=== PATIENT | female | born 1945 | race Caucasian/White ===

== ENCOUNTER 2016-11-07 13:35 | Inpatient (IN) | payer MEDICARE, BC ==
[2016-11-07] VITALS (8 sets, daily range): BP systolic 109–181; BP diastolic 58–94; PULSE 55–77; RESP 18–22; TEMP 96.9–97.9; O2SAT 91–96
[~2016-11-07] VITALS: Ht 154.9 cm; Wt 99.1 kg
[~2016-11-07 13:35] MED LIST: ASPI81 PO; ATEN1TAB73 PO; LISI10TA PO; PROT40TA PO; TRIGOSAMINE; ZOCO40TA PO
[2016-11-07] MEDS ORDERED: CALC1TAB12 PO (13:49)
[2016-11-07] MEDS ORDERED: POTA10TA2 PO (13:49)
[2016-11-07] MEDS ORDERED: NYST500000 PO (13:49)
[2016-11-07] MEDS ORDERED: OMEP20TA PO (13:49)
[2016-11-07] MEDS ORDERED: STOO100T PO (13:49)
[2016-11-07] MEDS ORDERED: SERT25TA83 PO (13:49)
[2016-11-07] MEDS ORDERED: FURO20TA PO (13:49)
[2016-11-07] MEDS ORDERED: INHALER (13:49)
[2016-11-07] MEDS ORDERED: FISHCAP4 PO (13:49)
[2016-11-07] MEDS ORDERED: MULT1TAB84 PO (13:49)
[2016-11-07] MEDS ORDERED: PRED5TAB PO (13:49)
[2016-11-07] MEDS ORDERED: ALEN1TAB48 PO (13:49)
[2016-11-07] MEDS ORDERED: ATEN25TA PO (13:49)
[2016-11-07] MEDS ORDERED: FIBER GUMMIES (13:49)
[2016-11-07] MEDS ORDERED: ASPIRIN 325 MG TAB PO ONE (14:00)
[2016-11-07] MEDS ORDERED: SODIUM CHLORIDE 0.9% FLUSH 10 ML FLUSH IVF PRN (14:00)
--- NOTE | 2016-11-07 14:02 | PD ---
HPI Chief Complaint: Respiratory Symptoms Time Seen by Provider: 13:40 Travel History International Travel<30 days: No Contact w/Intl Traveler<30days: No Traveled to known affect area: No History of Present Illness HPI This patient complains of central chest tightness and pressure whenever she exerts. She also has some shortness of breath with exertion. While resting she is asymptomatic. She denies history of coronary disease or pulmonary disease. Symptom severity is moderate. No alleviating factors. Duration 3 days. No fever or cough or injury. sHe takes Lasix secondary to swelling from prednisone she reports. She has been compliant with it. PFSH Past Medical History Arthritis: No Asthma: No Autoimmune Disease: No Blood Disorders: No Anxiety: Yes Depression: Yes Heart Rhythm Problems: No Cancer: No Cardiovascular Problems: Yes High Cholesterol: No Chemotherapy: No Chest Pain: No Congestive Heart Failure: No COPD: No Cerebrovascular Accident: No Diabetes: No Diminished Hearing: No Endocrine: No Gastrointestinal Disorders: Yes GERD: No Glaucoma: No Genitourinary: No Headaches: No Hepatitis: No Hiatal Hernia: Yes Hypertension: Yes Immune Disorder: No Kidney Stones: No Musculoskeletal: No Neurologic: No Psychiatric: No Reproductive: No Respiratory: No Migraines: No Myocardial Infarction: No Radiation Therapy: No Renal Failure: Yes Seizures: No Sickle Cell Disease: No Thyroid Disease: No Ulcer: No Past Surgical History Abdominal Surgery: Yes (HYSTERECTOMY, CHOLECYSTECTOMY) AICD: No Appendectomy: No Arteriovenous Shunt: No Cardiac Surgery: No Cholecystectomy: Yes Ear Surgery: No Endocrine Surgery: No Eye Surgery: No Genitourinary Surgery: No Gynecologic Surgery: No Hysterectomy: Yes Insulin Pump: No Joint Replacement: No Oral Surgery: No Pacemaker: No Thoracic Surgery: No Other Surgery: Yes (HERNIA REPAIR) Social History Alcohol Use: No Tobacco Use: No Substance Use: No Allergies-Medications (Allergen,Severity, Reaction): Coded Allergies: No Known Allergies (Verified , 11/07/16) Reported Meds & Prescriptions Reported Meds & Active Scripts Active Reported [Inhaler] Sertraline (Sertraline HCl) 25 Mg Tab 25 Mg PO DAILY [Fiber Gummies] Stool Softener (Docusate Sodium) 100 Mg Tab 1 Tab PO BID Nystatin 500,000 Unit Tab 1,000,000 Units PO Q8H Prednisone 5 Mg Tab 5 Mg PO DAILY Multivitamin Adults (Multiple Vitamins W/ Minerals) 1 Tab 1 Tab PO DAILY Fish Oil + D3 (Fish Oil-Cholecalciferol) 1,200-1,000 Mg-Unit Cap 1 Cap PO DAILY Alendronate (Alendronate Sodium) 70 Mg Tab 70 Mg PO Q7D Omeprazole 20 Mg Tab 20 Mg PO DAILY Furosemide 20 Mg Tab 20 Mg PO DAILY Potassium Chloride ER (Potassium Chloride) 10 Meq Tab 10 Meq PO DAILY Atenolol 25 Mg Tab 25 Mg PO DAILY Calcium 500 +D (Calcium Carbonate-Cholecalciferol) 500-400 Mg-Unit Tab 1 Tab PO BID Review of Systems General / Constitutional: No: Fever Eyes: No: Visual changes HENT: No: Headaches Cardiovascular: Positive: Chest Pain or Discomfort Respiratory: Positive: Shortness of Breath Gastrointestinal: No: Abdominal Pain Genitourinary: No: Dysuria Musculoskeletal: No: Pain Skin: No Rash Neurologic: No: Weakness Psychiatric: No: Depression Endocrine: No: Polydipsia Hematologic/Lymphatic: No: Easy Bruising Physical Exam Narrative GENERAL: Well-nourished, well-developed patient in no apparent distress. SKIN: Focused skin assessment reveals no rash and nodules. Skin is Warm and dry. HEAD: Atraumatic. Normocephalic. EYES: Pupils equal and round. No scleral icterus. No injection or drainage. ENT: No nasal bleeding or discharge. Mucous membranes pink and moist. NECK: Trachea midline. No JVD. CARDIOVASCULAR: Regular rate and rhythm. No murmur appreciated. RESPIRATORY: No accessory muscle use. Clear to auscultation. Breath sounds equal bilaterally. GASTROINTESTINAL: Abdomen soft, non-tender, nondistended. Hepatic and splenic margins not palpable. MUSCULOSKELETAL: No obvious deformities. No clubbing. No cyanosis. No edema. NEUROLOGICAL: Awake and alert. No obvious cranial nerve deficits. Motor grossly within normal limits. Normal speech. PSYCHIATRIC: Appropriate mood and affect; insight and judgment normal. Data Data Last Documented VS Vital Signs Date Time Temp Pulse Resp B/P Pulse Ox O2 Delivery O2 Flow Rate FiO2 11/07/16 15:16 59 20 147/67 91 Room Air 11/07/16 13:42 97.9 Orders Electrocardiogram (11/07/16 13:55) Basic Metabolic Panel (Bmp) (11/07/16 13:55) Ckmb (Isoenzyme) Profile (11/07/16 13:55) Complete Blood Count With Diff (11/07/16 13:55) Prothrombin Time / Inr (Pt) (11/07/16 13:55) Act Partial Throm Time (Ptt) (11/07/16 13:55) Troponin I (11/07/16 13:55) Chest, Single Ap (11/07/16 13:55) Ecg Monitoring (11/07/16 13:55) Iv Access Insert/Monitor (11/07/16 13:55) Oximetry (11/07/16 13:55) Aspirin (Aspirin) (11/07/16 14:00) Sodium Chloride 0.9% Flush (Ns Flush) (11/07/16 14:00) Admit Order (Ed Use Only) (11/07/16 15:54) Labs Laboratory Tests Test 11/07/16 14:10 White Blood Count 13.0 TH/MM3 Red Blood Count 4.44 MIL/MM3 Hemoglobin 13.3 GM/DL Hematocrit 39.8 % Mean Corpuscular Volume 89.8 FL Mean Corpuscular Hemoglobin 29.9 PG Mean Corpuscular Hemoglobin 33.3 % Concent Red Cell Distribution Width 12.8 % Platelet Count 205 TH/MM3 Mean Platelet Volume 8.2 FL Neutrophils (%) (Auto) 66.6 % Lymphocytes (%) (Auto) 20.2 % Monocytes (%) (Auto) 7.9 % Eosinophils (%) (Auto) 0.6 % Basophils (%) (Auto) 4.7 % Neutrophils # (Auto) 8.7 TH/MM3 Lymphocytes # (Auto) 2.6 TH/MM3 Monocytes # (Auto) 1.0 TH/MM3 Eosinophils # (Auto) 0.1 TH/MM3 Basophils # (Auto) 0.6 TH/MM3 CBC Comment DIFF FINAL Differential Comment Prothrombin Time 11.9 SEC Prothromb Time International 1.1 RATIO Ratio Activated Partial 23.6 SEC Thromboplast Time Sodium Level 141 MEQ/L Potassium Level 3.4 MEQ/L Chloride Level 105 MEQ/L Carbon Dioxide Level 24.9 MEQ/L Anion Gap 11 MEQ/L Blood Urea Nitrogen 18 MG/DL Creatinine 1.20 MG/DL Estimat Glomerular Filtration 44 ML/MIN Rate Random Glucose 166 MG/DL Calcium Level 8.9 MG/DL Total Creatine Kinase 86 U/L Troponin I 0.12 NG/ML MDM Medical Decision Making Medical Screen Exam Complete: Yes Emergency Medical Condition: Yes Medical Record Reviewed: Yes Differential Diagnosis ACS, coronary artery disease, bronchitis, pneumonia Narrative Course I have reviewed the patient's electronic medical record. IV placed I reviewed the EKG which shows sinus rhythm and no ST elevation or ectopy I reviewed the chest x-ray which is normal Extended cardiac monitoring shows sinus rhythm without ectopy CBC is normal Metabolic profile is normal CK is normal Troponin is 0.12 Coagulation studies are normal I called and spoke with the patient's primary physician in [place] who is Dr. Job Beasley the third. He faxed the patient's most recent testing. She had a normal myocardial perfusion scan with EF of 75% 2 months ago. She also had PFTs that showed some minor irregularities. I reviewed the case with Dr. Russell who will admit to telemetry. Etiology of her mild troponin elevation is unclear but I don't feel she is having an acute ACS at this time. She is asymptomatic in the bed at this time Diagnosis Primary Impression: Chest pain in adult Additional Impression: Elevated troponin I level Admitting Information Admitting Physician Requests: Admit Alfredo Smallwood MD Nov 07, 2016 14:02
--- NOTE | 2016-11-07 14:16 | RADHPO ---
EXAM DATE/TIME: 11/07/2016 14:01 [facility] COMPARISON: No previous studies available for comparison. INDICATIONS : Shortness of breath. MEDICAL HISTORY : Hypertension. SURGICAL HISTORY : None. ENCOUNTER: Initial ACUITY: 4 - 6 days PAIN SCORE: 0/10 LOCATION: Bilateral chest FINDINGS: A single view of the chest demonstrates the lungs to be symmetrically aerated without evidence of mas s, infiltrate or effusion. The cardiomediastinal contours are unremarkable. Osseous structures are intact. CONCLUSION: No acute disease. Chente Caicedo MD on November 07, 2016 at 14:14 Board Certified Radiologist. This report was verified electronically.
[2016-11-07 14:21] LABS: AUTOMATED NEUTROPHIL # 8.7 TH/MM3 (1.8-7.7); BASOPHIL # 0.6 TH/MM3 (0-0.2); BASOPHIL % 4.7 % (0.0-2.0); EOSINOPHIL # 0.1 TH/MM3 (0-0.4); EOSINOPHIL % 0.6 % (0.0-4.0); HEMATOCRIT 39.8 % (35.0-46.0); HEMO FLAGS DIFF FINAL; LYMPH % 20.2 % (9.0-44.0); LYMPHOCYTE # 2.6 TH/MM3 (1.0-4.8); MEAN CELL VOLUME 89.8 FL (80.0-100.0); MEAN CORPUSCULAR HEMOGLOBIN 29.9 PG (27.0-34.0); MEAN CORPUSCULAR HGB CONC 33.3 % (32.0-36.0); MONO % 7.9 % (0.0-8.0); NEUT % 66.6 % (16.0-70.0); PLATELET COUNT 205 TH/MM3 (150-450); RED BLOOD COUNT 4.44 MIL/MM3 (4.00-5.30); RED CELL DISTRIBUTION WIDTH 12.8 % (11.6-17.2)
[2016-11-07 14:27] LABS: POTASSIUM 3.4 MEQ/L (3.5-5.1)
[2016-11-07 14:30] LABS: BICARBONATE 24.9 MEQ/L (21.0-32.0)
[2016-11-07 14:32] LABS: APTT (PATIENT) 23.6 SEC (24.3-30.1); INTERNATIONAL NORMALIZED RATIO 1.1 RATIO; PROTHROMBIN TIME - PATIENT 11.9 SEC (9.8-11.6)
--- NOTE | 2016-11-07 15:55 | EKG ---
Date Performed: 11/07/2016 Time Performed: 13:44:14 PTAGE: 71 years EKG: Sinus rhythm Right bundle branch block Low QRS voltages in precordial leads Abnormal ECG NO PREVIOUS TRACING DOCTOR: Tom Blair Interpretating Date/Time 11/07/2016 15:55:13
[2016-11-07] MEDS ORDERED: hydrALAZINE HCL 20 MG/ML VIAL IV PRN (16:15)
[2016-11-07] MEDS ORDERED: SODIUM CHLORIDE 0.9% FLUSH 10 ML FLUSH IV FLUSH PRN (16:15)
[2016-11-07] MEDS ORDERED: NYSTATIN 500,000 UNIT TAB PO SCH (16:15)
[2016-11-07] MEDS ORDERED: POTASSIUM CHLORIDE 20 MEQ CONTROLLED RELEASE TAB PO ONE (16:15)
[2016-11-07] MEDS ORDERED: ONDANSETRON HCL 4 MG/2 ML VIAL IV PRN (16:15)
[2016-11-07] MEDS ORDERED: CALCIUM CARBONATE 500 MG CHEWABLE TAB CHEW PRN (16:15)
[2016-11-07] MEDS ORDERED: NITROGLYCERIN 0.4 MG SL 25 TABS/BTL SL PRN (16:15)
[2016-11-07] MEDS ORDERED: ACETAMINOPHEN 500 MG CPLT PO PRN (16:15)
[2016-11-07] MEDS ORDERED: DOCUSATE SODIUM 100 MG CAP PO PRN (16:15)
[2016-11-07] MEDS ORDERED: cloNIDine HCL 0.1 MG TAB PO PRN (16:15)
[2016-11-07] MEDS ORDERED: ACETAMINOPHEN/HYDROcodone 325 MG/7.5 MG TAB PO PRN (16:15)
[2016-11-07] MEDS ORDERED: MORPHINE SULFATE 4 MG/ML INJ IV PRN (16:15)
[2016-11-07] MEDS ORDERED: DOCUSATE SODIUM 50 MG/SENNA 8.6 MG TAB PO PRN (16:15)
[2016-11-07] MEDS ORDERED: PILL SPLITTER OTHER PRN (16:45)
--- NOTE | 2016-11-07 17:27 | HHI.HP ---
[facility] Service [place] [facility] Primary Care Physician Non-Staff Admission Diagnosis chest pain, mild trep elevation Diagnoses: Chief Complaint: chest pain Travel History International Travel<30 Days: No Contact w/Intl Traveler <30 Da: No Traveled to Known Affected Are: No History of Present Illness This is a 71-year-old female with a history of anxiety, depression, PMR on steroid, hypertension and chronic kidney disease stage III. She complains of dyspnea on exertion followed by chest heaviness for the past 3 days associated with shakiness, palpitations with spontaneous resolution when she rests. Denies leg pain and swelling but feels weak. She recently took a train from [place] about a week ago. Patient on chronic steroids and when her PCP tried to wean her she developed shortness of breath but different from her recent symptoms. Review of Systems Constitutional: COMPLAINS OF: Fatigue, DENIES: Diaphoretic episodes, Fever, Weight gain, Weight loss, Chills, Change in appetite, Night Sweats Endocrine: DENIES: Heat/cold intolerance, Polydipsia, Polyuria, Polyphagia Eyes: DENIES: Blurred vision, Diplopia, Vision loss, Photosensitivity Ears, nose, mouth, throat: DENIES: Tinnitus, Vertigo, Throat pain, Hoarseness, Epistaxis, Odynophagia Respiratory: COMPLAINS OF: Shortness of breath, DENIES: Cough, Wheezing, Hemoptysis, Sputum production Cardiovascular: COMPLAINS OF: Chest pain, Palpitations, DENIES: Syncope, Dyspnea on Exertion, PND, Lower Extremity Edema, Orthopnea, Claudication Gastrointestinal: DENIES: Abdominal pain, Black stools, Bloody stools, Constipation, Diarrhea, Nausea, Vomiting, Difficulty Swallowing, Anorexia Genitourinary: DENIES: Urinary frequency, Urinary incontinence, Urgency, Hematuria, Dysuria, Nocturia, Vaginal discharge Integumentary: DENIES: Rash Neurologic: DENIES: Headache, Localized weakness, Seizures, Tremor, Poor Balance Psychiatric: DENIES: Anxiety, Confusion, Depression, Hallucinations, Agitation , Suicidal Ideation, Homicidal Ideation, Delusions Past Family Social History Past Medical History As previously mentioned. Lasix to negate effect of steroids denies CHF Past Surgical History Hysterectomy and cholecystectomy as well as hernia repair Reported Medications Sertraline (Sertraline HCl) 25 Mg Tab 25 Mg PO DAILY [Fiber Gummies] Stool Softener (Docusate Sodium) 100 Mg Tab 1 Tab PO BID Nystatin 500,000 Unit Tab 1,000,000 Units PO Q8H Prednisone 5 Mg Tab 5 Mg PO DAILY Multivitamin Adults (Multiple Vitamins W/ Minerals) 1 Tab 1 Tab PO DAILY Fish Oil + D3 (Fish Oil-Cholecalciferol) 1,200-1,000 Mg-Unit Cap 1 Cap PO DAILY Alendronate (Alendronate Sodium) 70 Mg Tab 70 Mg PO Q7D Omeprazole 20 Mg Tab 20 Mg PO DAILY Furosemide 20 Mg Tab 20 Mg PO DAILY Potassium Chloride ER (Potassium Chloride) 10 Meq Tab 10 Meq PO DAILY Atenolol 25 Mg Tab 25 Mg PO DAILY Calcium 500 Allergies: Coded Allergies: No Known Allergies (Verified , 11/07/16) Family History Heart disease Social History Does not smoke or drink Physical Exam Vital Signs Vital Signs Date Time Temp Pulse Resp B/P Pulse Ox O2 Delivery O2 Flow Rate FiO2 11/07/16 15:16 59 20 147/67 91 Room Air 11/07/16 14:18 66 20 109/58 95 11/07/16 14:16 96 11/07/16 13:42 97.9 77 22 181/94 96 Physical Exam GENERAL: This is an obese, well-developed patient, in no apparent distress. SKIN: No rashes, ecchymoses or lesions. Cool and dry. HEAD: Atraumatic. Normocephalic. No temporal or scalp tenderness. EYES: Pupils equal round and reactive. Extraocular motions intact. No scleral icterus. No injection or drainage. ENT: Nose without bleeding, purulent drainage or septal hematoma. Throat without erythema, tonsillar hypertrophy or exudate. Uvula midline. Airway patent. NECK: Trachea midline. No JVD or lymphadenopathy. Supple, nontender, no meningeal signs. CARDIOVASCULAR: Regular rate and rhythm without murmurs, gallops, or rubs. No chest wall tenderness RESPIRATORY: Clear to auscultation. Breath sounds equal bilaterally. No wheezes , rales, or rhonchi. GASTROINTESTINAL: Abdomen soft, non-tender, nondistended. No guarding. MUSCULOSKELETAL: Extremities without clubbing, cyanosis, or edema. No joint tenderness, effusion, or edema noted. No calf tenderness. Negative Homans sign bilaterally. NEUROLOGICAL: Awake and alert. Cranial nerves II through XII intact. Motor and sensory grossly within normal limits. Five out of 5 muscle strength in all muscle groups. Normal speech. Laboratory Laboratory Tests Test 11/07/16 14:10 White Blood Count 13.0 Red Blood Count 4.44 Hemoglobin 13.3 Hematocrit 39.8 Mean Corpuscular Volume 89.8 Mean Corpuscular Hemoglobin 29.9 Mean Corpuscular Hemoglobin 33.3 Concent Red Cell Distribution Width 12.8 Platelet Count 205 Mean Platelet Volume 8.2 Neutrophils (%) (Auto) 66.6 Lymphocytes (%) (Auto) 20.2 Monocytes (%) (Auto) 7.9 Eosinophils (%) (Auto) 0.6 Basophils (%) (Auto) 4.7 Neutrophils # (Auto) 8.7 Lymphocytes # (Auto) 2.6 Monocytes # (Auto) 1.0 Eosinophils # (Auto) 0.1 Basophils # (Auto) 0.6 CBC Comment DIFF FINAL Differential Comment Prothrombin Time 11.9 Prothromb Time International 1.1 Ratio Activated Partial 23.6 Thromboplast Time Sodium Level 141 Potassium Level 3.4 Chloride Level 105 Carbon Dioxide Level 24.9 Anion Gap 11 Blood Urea Nitrogen 18 Creatinine 1.20 Estimat Glomerular Filtration 44 Rate Random Glucose 166 Calcium Level 8.9 Total Creatine Kinase 86 Troponin I 0.12 Result Diagram: 11/07/16 1410 11/07/16 1410 Imaging EKG tracing interpreted by me with sinus rhythm with right bundle branch block no previous EKG for comparison Chest x-ray with no acute cardiopulmonary disease image interpreted by me Last 24 hours Impressions Chest X-Ray 11/07/16 1355 Signed Impressions: Service Date/Time: Monday, November 07, 2016 14:01 - CONCLUSION: No acute disease. Chente Caicedo MD Assessment and Plan Problem List: (1) Elevated troponin I level ICD Code: R74.8 Status: Acute (2) Chest pain in adult ICD Code: R07.9 Status: Acute Assessment and Plan This is a 71-year-old female with a history of anxiety, depression, PMR on steroid, hypertension and chronic kidney disease stage III. She complains of dyspnea on exertion followed by chest heaviness for the past 3 days associated with shakiness, palpitations with spontaneous resolution when she rests. Denies leg pain and swelling but feels weak. She recently took a train from [place] about a week ago. Patient on chronic steroids and when her PCP tried to wean her she developed shortness of breath but different from her recent symptoms. DWYER with Exertional chest pain and elevated troponin. Recent perfusion scan was negative for ischemia 2 months ago. Patient was told her PFTs was abnormal suggestive of asthma. Patient had a recent long trip from [place]. Need to rule out for PE will order CTA patient aware can potentially cause renal failure. Start IV hydration and nebulization. Trend cardiac enzymes and consider cardiology consult. Continue aspirin and atenolol. Leukocytosis likely related to steroid use Hypokalemia. Replace check magnesium level Chronic kidney disease stage III which could explain elevated troponin. IV hydration and repeat BMP and magnesium in the morning. Avoid nephrotoxins DVT prophylaxis with SCD and subcutaneous heparin Discussed Condition With Patient Laci Russell MD Nov 07, 2016 17:27
[2016-11-07] MEDS ORDERED: RESP: ALBUTEROL 0.63 MG/3 ML NEB (PRN) NEB (17:30)
[2016-11-07] MEDS ORDERED: NALOXONE HCL 0.4 MG/ML AMP IV PUSH PRN (17:30)
[2016-11-07 18:10] LABS: MAGNESIUM 1.8 MG/DL (1.5-2.5)
[2016-11-07] MEDS: SODIUM CHLOR 0.9% 1000 ML INJ 1,000 ML IV SCH ×2 (18:19→19:19)
[2016-11-07] MEDS ORDERED: IOHEXOL 350 MG/ML 10 ML VIAL (for RAD DIAG) IV ONE (19:17)
--- NOTE | 2016-11-07 19:30 | RADHPO ---
EXAM DATE/TIME: 11/07/2016 19:05 [facility] COMPARISON: CHEST SINGLE AP, November 07, 2016, 14:01. INDICATIONS : Dyspnea with chest heaviness. Evaluate for pulmonary embolism. IV CONTRAST: 75 cc Omnipaque 350 (iohexol) IV RADIATION DOSE: 21.71 CTDIvol (mGy) MEDICAL HISTORY : Hypertension. SURGICAL HISTORY : Hysterectomy. Cholecystectomy.Hernia repair. ENCOUNTER: Initial ACUITY: 3 days PAIN SCALE: 0/10 LOCATION: Bilateral chest TECHNIQUE: Volumetric scanning of the chest was performed using a pulmonary embolism protocol MIP images were re constructed. Using automated exposure control and adjustment of the mA and/or kV according to patien t size, radiation dose was kept as low as reasonably achievable to obtain optimal diagnostic quality images. FINDINGS: Extensive bilateral pulmonary emboli present beginning in the right and left main pulmonary arteries and involving all segments of all lobes. Embolus burden is bulkier on the right. I don't see any evid ence of right ventricular strain. Heart size normal. Coronary artery calcification is noted. No infiltrate, effusion or pneumothorax. CONCLUSION: Extensive bilateral pulmonary emboli. Flavio Stephens MD on November 07, 2016 at 19:27 Board Certified Radiologist. This report was verified electronically.
[2016-11-07] MEDS ORDERED: HEPARIN-D5W INJ 250 ML IV SCH (20:00)
[2016-11-07] MEDS ORDERED: HEPARIN SODIUM - IV 10,000 UNITS/10 ML VIAL IV ONE (20:00)
[2016-11-07 20:27] LABS: HEMATOCRIT 39.1 % (35.0-46.0); MEAN CELL VOLUME 89.5 FL (80.0-100.0); MEAN CORPUSCULAR HEMOGLOBIN 30.2 PG (27.0-34.0); MEAN CORPUSCULAR HGB CONC 33.8 % (32.0-36.0); PLATELET COUNT 184 TH/MM3 (150-450); RED BLOOD COUNT 4.37 MIL/MM3 (4.00-5.30); RED CELL DISTRIBUTION WIDTH 13.2 % (11.6-17.2); REVIEW FLAG FINAL; WHITE BLOOD COUNT 10.8 TH/MM3 (4.0-11.0)
[2016-11-07 20:48] LABS: APTT (PATIENT) 24.7 SEC (24.3-30.1); INTERNATIONAL NORMALIZED RATIO 1.1 RATIO; PROTHROMBIN TIME - PATIENT 12.2 SEC (9.8-11.6)
[2016-11-07] MEDS: SODIUM CHLORIDE 0.9% FLUSH 10 ML FLUSH IV FLUSH SCH (21:21)
[2016-11-07] MEDS: DOCUSATE SODIUM 100 MG CAP PO SCH (21:21)
--- NOTE | 2016-11-07 21:48 | EKG ---
Date Performed: 11/07/2016 Time Performed: 17:40:08 PTAGE: 71 years EKG: Sinus bradycardia. Right bundle branch block Abnormal ECG NO SIGNIFICANT CHANGE FROM PRIOR ELECTROCARDIOGRAM. PREVIOUS TRACING : 11/07/2016 13.44 DOCTOR: Tom Blair Interpretating Date/Time 11/07/2016 21:48:06
[2016-11-07] MEDS: NYSTATIN 500,000 UNIT TAB PO SCH (22:00)
[2016-11-07] MEDS ORDERED: HEPARIN SODIUM - SQ 10,000 UNITS/ML VIAL SQ SCH (22:00)
[2016-11-08] VITALS (11 sets, daily range): BP systolic 109–143; BP diastolic 61–78; PULSE 58–67; RESP 16–20; TEMP 96.4–97.9; O2SAT 93–99
[2016-11-08] MEDS ORDERED: HEPARIN SODIUM - IV 10,000 UNITS/10 ML VIAL IV PRN ×2 (02:00)
[2016-11-08 04:43] LABS: APTT (PATIENT) GREATER THAN 153.4 SEC (24.3-30.1)
[2016-11-08] MEDS: NYSTATIN 500,000 UNIT TAB PO SCH ×3 (05:52→21:25)
--- NOTE | 2016-11-08 06:53 | EKG ---
Date Performed: 11/07/2016 Time Performed: 22:30:24 PTAGE: 71 years EKG: Sinus bradycardia. Right bundle branch block Abnormal ECG NO SIGNIFICANT CHANGE FROM PRIOR ELECTROCARDIOGRAM. PREVIOUS TRACING : 11/07/2016 17.40 DOCTOR: Tom Blair Interpretating Date/Time 11/08/2016 06:51:41
[2016-11-08 07:01] LABS: BASOPHIL # 0.1 TH/MM3 (0-0.2); BASOPHIL % 0.6 % (0.0-2.0); EOSINOPHIL # 0.2 TH/MM3 (0-0.4); EOSINOPHIL % 1.7 % (0.0-4.0); HEMATOCRIT 37.4 % (35.0-46.0); HEMO FLAGS DIFF FINAL; LYMPH % 34.6 % (9.0-44.0); LYMPHOCYTE # 3.6 TH/MM3 (1.0-4.8); MEAN CELL VOLUME 89.7 FL (80.0-100.0); MEAN CORPUSCULAR HEMOGLOBIN 29.9 PG (27.0-34.0); MEAN CORPUSCULAR HGB CONC 33.3 % (32.0-36.0); MONO % 6.1 % (0.0-8.0); PLATELET COUNT 194 TH/MM3 (150-450); RED BLOOD COUNT 4.17 MIL/MM3 (4.00-5.30); RED CELL DISTRIBUTION WIDTH 12.7 % (11.6-17.2); WHITE BLOOD COUNT 10.5 TH/MM3 (4.0-11.0)
[2016-11-08 07:14] LABS: BICARBONATE 29.5 MEQ/L (21.0-32.0); POTASSIUM 4.2 MEQ/L (3.5-5.1)
[2016-11-08] MEDS ORDERED: ASPIRIN 325 MG TAB PO SCH (09:00)
[2016-11-08 09:48] LABS: APTT (PATIENT) 141.7 SEC (24.3-30.1)
[2016-11-08] MEDS ORDERED: PNEUMOCOCCAL POLYVALENT INJ 25 MCG/0.5 ML SYR IM ONE (10:00)
--- NOTE | 2016-11-08 10:15 | RADHPO ---
EXAM DATE/TIME: 11/08/2016 08:15 [facility] COMPARISON: No previous studies available for comparison. INDICATIONS : Pulmonary embolism. MEDICAL HISTORY : Hypercholesterolemia. Hypertension. Hernia, hiatal. Dyspnea. Renal failure. SURGICAL HISTORY : Tonsillectomy.Hysterectomy. Cholecystectomy.Hernia repair. Right ankle surgery. Right knee surgery. ENCOUNTER: Initial ACUITY: 3 days PAIN SCORE: 3/10 LOCATION: Bilateral legs. TECHNIQUE: Venous ultrasound of the left and right leg was performed from the inguinal ligament to the proximal calf. Real-time, color Doppler and spectral tracing, compression and augmentation techniques were us ed. FINDINGS: RIGHT LEG: There is normal compressibility of the deep venous system from the inguinal region to the proximal ca lf. No echogenic clot is seen in the lumen of the common femoral, femoral, popliteal, and posterior tibial veins. There is a normal response of the venous system to proximal and distal augmentation an d respiration. LEFT LEG: There is normal compressibility of the deep venous system from the inguinal region to the proximal ca lf. No echogenic clot is seen in the lumen of the common femoral, femoral, popliteal, and posterior tibial veins. There is a normal response of the venous system to proximal and distal augmentation an d respiration. CONCLUSION: The study is negative for deep venous thrombosis bilateral lower extremity. Vince Francis MD on November 08, 2016 at 10:13 Board Certified Radiologist. This report was verified electronically.
[2016-11-08] MEDS: DOCUSATE SODIUM 100 MG CAP PO SCH ×2 (10:31→21:26)
[2016-11-08] MEDS: predniSONE 5 MG TAB PO SCH (10:31)
[2016-11-08] MEDS: SODIUM CHLORIDE 0.9% FLUSH 10 ML FLUSH IV FLUSH SCH ×2 (10:31→21:00)
[2016-11-08] MEDS: POTASSIUM CHLORIDE 10 MEQ CONTROLLED RELEASE TAB PO SCH (10:31)
[2016-11-08] MEDS: ATENOLOL 25 MG TAB PO SCH (10:32)
[2016-11-08] MEDS: PANTOPRAZOLE SOD 20 MG DELAYED RELEASE TAB PO SCH (10:32)
[2016-11-08] MEDS: FUROSEMIDE 20 MG TAB PO SCH (10:32)
[2016-11-08] MEDS: SERTRALINE HCL 50 MG TAB PO SCH (10:32)
[2016-11-08 10:33] LABS: APTT (PATIENT) 70.9 SEC (24.3-30.1)
--- NOTE | 2016-11-08 14:50 | HHI.PR ---
Subjective Remarks Follow-up PE. She feels better with less shortness of breath able to ambulate hallway on room air. No bleeding. Patient opted for novel agents than Coumadin. Anticoagulation discussed with the patient Discussed with RN Objective Vitals Vital Signs Date Time Temp Pulse Resp B/P Pulse Ox O2 Delivery O2 Flow Rate FiO2 11/08/16 12:00 97.5 58 18 115/70 99 11/08/16 10:29 132/71 11/08/16 08:05 95 Nasal Cannula 2.00 11/08/16 08:00 96.4 60 16 119/61 96 11/08/16 04:00 97.2 61 20 136/78 96 11/08/16 00:00 97.8 58 20 143/75 95 11/07/16 23:00 55 11/07/16 20:00 95 Nasal Cannula 2.00 11/07/16 20:00 97.9 64 18 124/70 95 11/07/16 18:23 95 Nasal Cannula 2.00 11/07/16 17:15 96.9 62 20 142/68 96 11/07/16 15:16 59 20 147/67 91 Room Air I/O 11/07/16 11/07/16 11/07/16 11/08/16 11/08/16 11/08/16 07:00 15:00 23:00 07:00 15:00 23:00 Intake Total 180 ml 680 ml Output Total 150 ml Balance 30 ml 680 ml Intake Oral 180 ml 680 ml Output Urine Total 150 ml # Voids 3 # Bowel Movements 0 Result Diagram: 11/08/16 0635 11/08/16 0635 Imaging Last Impressions Lower Extremity Ultrasound 11/08/16 0000 Signed Impressions: Service Date/Time: Tuesday, November 08, 2016 08:15 - CONCLUSION: The study is negative for deep venous thrombosis bilateral lower extremity. Vince Francis MD Chest X-Ray 11/07/16 1355 Signed Impressions: Service Date/Time: Monday, November 07, 2016 14:01 - CONCLUSION: No acute disease. Chente Caicedo MD CT Angiography 11/07/16 0000 Signed Impressions: Service Date/Time: Monday, November 07, 2016 19:05 - CONCLUSION: Extensive bilateral pulmonary emboli. Flavio Stephens MD Objective Remarks GENERAL: This is an obese, well-developed patient, in no apparent distress. SKIN: No rashes, ecchymoses or lesions. Cool and dry. HEAD: Atraumatic. Normocephalic. No temporal or scalp tenderness. EYES: Pupils equal round and reactive. Extraocular motions intact. No scleral icterus. No injection or drainage. ENT: Nose without bleeding, purulent drainage or septal hematoma. Throat without erythema, tonsillar hypertrophy or exudate. Uvula midline. Airway patent. NECK: Trachea midline. No JVD or lymphadenopathy. Supple, nontender, no meningeal signs. CARDIOVASCULAR: Regular rate and rhythm without murmurs, gallops, or rubs. No chest wall tenderness RESPIRATORY: Clear to auscultation. Breath sounds equal bilaterally. No wheezes , rales, or rhonchi. GASTROINTESTINAL: Abdomen soft, non-tender, nondistended. No guarding. MUSCULOSKELETAL: Extremities without clubbing, cyanosis, or edema. No joint tenderness, effusion, or edema noted. No calf tenderness. Negative Homans sign bilaterally. NEUROLOGICAL: Awake and alert. Cranial nerves II through XII intact. Motor and sensory grossly within normal limits. Five out of 5 muscle strength in all muscle groups. Normal speech. Nonfocal Procedures none A/P Problem List: (1) Elevated troponin I level ICD Code: R74.8 Status: Acute (2) Chest pain in adult ICD Code: R07.9 Status: Acute Assessment and Plan This is a 71-year-old female with a history of anxiety, depression, PMR on steroid, hypertension and chronic kidney disease stage III. She complains of dyspnea on exertion followed by chest heaviness for the past 3 days associated with shakiness, palpitations with spontaneous resolution when she rests. Denies leg pain and swelling but feels weak. She recently took a train from [place] about a week ago. Patient on chronic steroids and when her PCP tried to wean her she developed shortness of breath but different from her recent symptoms. DWYER with Exertional chest pain and elevated troponin. Recent perfusion scan was negative for ischemia 2 months ago. Patient was told her PFTs was abnormal suggestive of asthma. Patient had a recent long trip from [place]. CTA showed extensive bilateral PE. She is clinically improving on IV heparin. She is opting for novel agents and will start Eliquis tonight and DC heparin drip now. Discontinue IV hydration. Continue nebulization. Leukocytosis likely related to steroid use Hypokalemia. Replace Chronic kidney disease stage III which could explain elevated troponin. Improving discontinue IV hydration. Avoid nephrotoxins DVT prophylaxis with SCD and subcutaneous heparin Discharge Planning Improving possible discharge in the morning Laci Russell MD Nov 08, 2016 14:50
[2016-11-08] MEDS ORDERED: APIX5TAB PO ×2 (14:55)
--- NOTE | 2016-11-08 14:56 | HHI.DCPOC ---
Discharge Care Plan Diagnosis: (1) Chest pain in adult (2) Elevated troponin I level Your Health Problems Are: Difficulty with ADL Exercise Tolerance Goals to Promote Your Health * To prevent worsening of your condition and complications * To maintain your health at the optimal level Directions to Meet Your Goals Take your medications as prescribed Follow your dietary instruction Follow activity as directed Keep your appointments as scheduled Take your immunizations and boosters as scheduled If your symptoms worsen call your PCP, if no PCP go to Urgent Care Center or Emergency Room Smoking is Dangerous to Your Health. Avoid second hand smoke Call the 24-hour hour crisis hotline for domestic abuse at Laci Russell MD Nov 08, 2016 14:56
[2016-11-08] MEDS: APIXABAN 5 MG TABLET PO SCH (21:26)
--- NOTE | 2016-11-08 22:11 | MB ---
cc: TIEN CHAUHAN DATE OF CONSULTATION 11/08/2016 REASON FOR CONSULTATION Pulmonary embolism. HISTORY OF PRESENT ILLNESS Mrs. Beckett is a 71-year-old female who presents to the emergency room with shortness of breath and a sense of heaviness in the chest for about 3 days prior to presenting to the emergency room feeling weak and shaky. The patient has recently come via train from [place]. Tells me it was a very long trip with lots of delays and a lot of sitting around. The patient had a CT angiogram upon presentation with evidence of extensive bilateral pulmonary emboli. Her shortness of breath has much improved since her admission. Oxygen saturation over 90% initially on oxygen therapy, now doing well on room air. PAST MEDICAL HISTORY Is that of: 1. Polymyalgia rheumatica. 2. Mood disorder namely depression. 3. History of hypertension. 4. And chronic kidney disease. SOCIAL HISTORY Does not smoke, does not drink, does not use drugs. FAMILY HISTORY Positive for heart disease otherwise unremarkable. ALLERGIES None known to medication. MEDICATIONS At home include: 1. Sertraline. 2. Prednisone 5 mg daily. 3. Alendronate. 4. Omeprazole. 5. Lasix. 6. Potassium. 7. Atenolol. 8. Calcium. REVIEW OF SYSTEMS A 12-point review of systems as per HPI and past history otherwise negative. PHYSICAL EXAMINATION GENERAL: The patient is alert. VITAL SIGNS: Temperature 98, pulse 60, respiration 20, blood pressure 110/60 however, quite variable. Oxygen saturation on room air 95%. HEENT: Exam unremarkable. Eyes without icterus. NECK: Without adenopathy, thyroid enlargement. Central trachea. CHEST: Without dullness to percussion, clear to auscultation. CARDIOVASCULAR: Exam PMI distant. S1-S2 audible. 1/6 ejection systolic murmur left sternal border. ABDOMEN: Lax. Bowel sounds audible. EXTREMITIES: No clubbing, cyanosis or edema. IMAGING CT angiogram extensive bilateral pulmonary emboli. LABORATORY DATA CBC with a white count of 13,000, hemoglobin 13, hematocrit 39, platelets at 205,000. Sodium 141, potassium 3.4, BUN 18, creatinine 1.2. IMPRESSION 1. Bilateral pulmonary emboli as discussed above with stable vitals and adequate oxygenation. 2. Hypertension. 3. Mood disorder namely anxiety, depression. 4. Hypertension. 5. Polymyalgia rheumatica. 6. Chronic kidney disease. PLAN The patient is placed on anticoagulant therapy and she is seems to be responding well to treatment. Her oxygenation is adequate. No evidence of cardiac decompensation. The patient has no history of congestive heart failure, uses diuretic therapy because of fluid retention related to her steroid therapy. Ultrasound of lower extremities was without evidence of DVT. Would continue anticoagulant therapy as present and start oral therapy. She should be able to be discharged within a few days. I do thank you for asking me to partake in Mrs. Stewart's care. Tien Chauhan MD WWW/ROSSANA /6:26 PM /9:51 PM
[2016-11-09] VITALS: BP 145/75; PULSE 69; RESP 16; TEMP 98.1; O2SAT 95
[2016-11-09 04:00] VITALS: BP 142/71; PULSE 80; RESP 16; TEMP 99.5; O2SAT 93
[2016-11-09] MEDS: NYSTATIN 500,000 UNIT TAB PO SCH (05:42)
[2016-11-09 08:00] VITALS: BP 121/75; PULSE 69; RESP 18; TEMP 98.1; O2SAT 94
[2016-11-09] MEDS: FUROSEMIDE 20 MG TAB PO SCH (09:15)
[2016-11-09] MEDS: ATENOLOL 25 MG TAB PO SCH (09:15)
[2016-11-09] MEDS: PANTOPRAZOLE SOD 20 MG DELAYED RELEASE TAB PO SCH (09:15)
[2016-11-09] MEDS: DOCUSATE SODIUM 100 MG CAP PO SCH (09:16)
[2016-11-09] MEDS: APIXABAN 5 MG TABLET PO SCH (09:16)
[2016-11-09] MEDS: SERTRALINE HCL 50 MG TAB PO SCH (09:16)
[2016-11-09] MEDS: POTASSIUM CHLORIDE 10 MEQ CONTROLLED RELEASE TAB PO SCH (09:16)
[2016-11-09] MEDS: SODIUM CHLORIDE 0.9% FLUSH 10 ML FLUSH IV FLUSH SCH (09:17)
[2016-11-09] MEDS: predniSONE 5 MG TAB PO SCH (09:20)
--- NOTE | 2016-11-09 09:25 | HHI.PR ---
Subjective Remarks Follow-up PE. She is doing well ambulating in the hallway without chest pain. She understands she needs to take Eliquis. Discussed with RN and spring encaser Objective Vitals Vital Signs Date Time Temp Pulse Resp B/P Pulse Ox O2 Delivery O2 Flow Rate FiO2 11/09/16 04:00 99.5 80 16 142/71 93 11/09/16 00:00 98.1 69 16 145/75 95 11/08/16 20:50 93 21 11/08/16 20:00 97.9 64 18 132/73 94 11/08/16 20:00 61 11/08/16 16:00 97.3 67 18 109/72 96 11/08/16 15:11 59 11/08/16 12:00 97.5 58 18 115/70 99 11/08/16 10:30 64 11/08/16 10:29 132/71 I/O 11/08/16 11/08/16 11/08/16 11/09/16 11/09/16 11/09/16 07:00 15:00 23:00 07:00 15:00 23:00 Intake Total 680 ml 933 ml Balance 680 ml 933 ml Intake Oral 680 ml 780 ml IV Total 153 ml # Voids 3 5 8 1 # Bowel Movements 1 Result Diagram: 11/08/16 0635 11/08/16 0635 Imaging Last Impressions Lower Extremity Ultrasound 11/08/16 0000 Signed Impressions: Service Date/Time: Tuesday, November 08, 2016 08:15 - CONCLUSION: The study is negative for deep venous thrombosis bilateral lower extremity. Vince Francis MD Chest X-Ray 11/07/16 1355 Signed Impressions: Service Date/Time: Monday, November 07, 2016 14:01 - CONCLUSION: No acute disease. Chente Caicedo MD CT Angiography 11/07/16 0000 Signed Impressions: Service Date/Time: Monday, November 07, 2016 19:05 - CONCLUSION: Extensive bilateral pulmonary emboli. Flavio Stephens MD Objective Remarks GENERAL: This is an obese, well-developed patient, in no apparent distress. SKIN: No rashes, ecchymoses or lesions. Cool and dry. HEAD: Atraumatic. Normocephalic. No temporal or scalp tenderness. EYES: Pupils equal round and reactive. Extraocular motions intact. No scleral icterus. No injection or drainage. ENT: Nose without bleeding, purulent drainage or septal hematoma. Throat without erythema, tonsillar hypertrophy or exudate. Uvula midline. Airway patent. NECK: Trachea midline. No JVD or lymphadenopathy. Supple, nontender, no meningeal signs. CARDIOVASCULAR: Regular rate and rhythm without murmurs, gallops, or rubs. No chest wall tenderness RESPIRATORY: Clear to auscultation. Breath sounds equal bilaterally. No wheezes , rales, or rhonchi. GASTROINTESTINAL: Abdomen soft, non-tender, nondistended. No guarding. MUSCULOSKELETAL: Extremities without clubbing, cyanosis, or edema. No joint tenderness, effusion, or edema noted. No calf tenderness. Negative Homans sign bilaterally. NEUROLOGICAL: Awake and alert. Cranial nerves II through XII intact. Motor and sensory grossly within normal limits. Five out of 5 muscle strength in all muscle groups. Normal speech. Procedures none A/P Problem List: (1) Elevated troponin I level ICD Code: R74.8 Status: Acute (2) Chest pain in adult ICD Code: R07.9 Status: Acute Assessment and Plan This is a 71-year-old female with a history of anxiety, depression, PMR on steroid, hypertension and chronic kidney disease stage III. She complains of dyspnea on exertion followed by chest heaviness for the past 3 days associated with shakiness, palpitations with spontaneous resolution when she rests. Denies leg pain and swelling but feels weak. She recently took a train from [place] about a week ago. Patient on chronic steroids and when her PCP tried to wean her she developed shortness of breath but different from her recent symptoms. DWYER with Exertional chest pain and elevated troponin. Recent perfusion scan was negative for ischemia 2 months ago. Patient was told her PFTs was abnormal suggestive of asthma. Patient had a recent long trip from [place]. CTA showed extensive bilateral PE. She opted for novel agents and tolerating Eliquis t Leukocytosis likely related to steroid use Hypokalemia. Replace Chronic kidney disease stage III which could explain elevated troponin. Improving discontinue IV hydration. Avoid nephrotoxins DVT prophylaxis with SCD and Eliquis Discharge Planning Discharge patient to home Condition on discharge: Improved Regular Diet as tolerated Ad Janel activity no driving Rx written: Eliquis Follow-up with primary care physician in one week Laci Russell MD Nov 09, 2016 09:25
[2016-11-09] MEDS ORDERED: WARF-23 PO (12:14)
[2016-11-09] MEDS ORDERED: ENOX100I SQ (12:14)
--- NOTE | 2016-11-09 12:16 | HHI.FF ---
Face to Face Verification Diagnosis: (1) PE (pulmonary thromboembolism) Home Health Nursing Order: Medical education Signs/symptoms of disease process Medication education-adverse effect Nursing assessment with vital signs Instructions: Need PT /INR and Lovenox shots I have seen patient Sophy Stewart on 11/09/16. My clinical findings support the need for the requested home health care services because: Patient has SOB I certify that my clinical findings support that this patient is homebound because: Unsteady gait/balance Unsafe to leave home unassisted Laci Russell MD Nov 09, 2016 12:16
== END 2016-11-09 12:00 | disposition home or self-care (01) | DRG 176 ==
LOC: PHED 13:35 → PHEDA 15:54 → PH3B 16:52 → OBSVTOIN 19:59
PROVIDERS: ADMIT Internal Medicine; ATTEND Internal Medicine
DX: I26.99 Other pulmonary embolism without acute cor pulmonale (principal); Z68.41 Body mass index [BMI] 40.0-44.9, adult; I12.9 Hypertensive chronic kidney disease with stage 1 through stage 4 chronic kidney disease, or unspecified chronic kidney disease; N18.3 Chronic kidney disease, stage 3 (moderate); E66.9 Obesity, unspecified; E87.6 Hypokalemia; M35.3 Polymyalgia rheumatica; Z79.52 Long term (current) use of systemic steroids; F32.9 Major depressive disorder, single episode, unspecified; F41.9 Anxiety disorder, unspecified; Z23 Encounter for immunization
CPT/HCPCS: 71010; 71275; 80048; 82550; 83735; 84484; 85025; 85027; 85610; 85730; 87641; 90471; 90732; 93005; 93970; 94664; G0009; J1644; J7030; J7512; J7613; Q9967

== ENCOUNTER 2016-12-28 08:13 | Observation (INO) | payer MEDICARE, BC ==
[~2016-12-28] VITALS: Ht 160 cm; Wt 97.7 kg
[2016-12-28] VITALS (10 sets, daily range): BP systolic 115–189; BP diastolic 59–73; PULSE 58–70; RESP 16–20; TEMP 96.3–97.7; O2SAT 93–98
[~2016-12-28 08:13] MED LIST changes: +ALEN1TAB48 PO; +APIX5TAB PO; -ASPI81 PO; -ATEN1TAB73 PO; +ATEN25TA PO; +CALC1TAB12 PO; +ENOX100I SQ; +FIBER GUMMIES; +FISHCAP4 PO; +FURO20TA PO; +INHALER; -LISI10TA PO; +MULT1TAB84 PO; +NYST500000 PO; +OMEP20TA PO; +POTA10TA2 PO; +PRED5TAB PO; -PROT40TA PO; +SERT25TA83 PO; +STOO100T PO; -TRIGOSAMINE; +WARF-23 PO; -ZOCO40TA PO
[2016-12-28] MEDS ORDERED: ASPIRIN 81 MG CHEW TAB PO ONE (08:30)
[2016-12-28] MEDS ORDERED: SODIUM CHLORID 0.9% 500 ML INJ 500 ML IV ONE (08:30)
[2016-12-28] MEDS ORDERED: SODIUM CHLORIDE 0.9% FLUSH 10 ML FLUSH IVF PRN (08:30)
[2016-12-28] MEDS: NITROGLYCERIN 0.4 MG SL 25 TABS/BTL SL SCH ×3 (08:35→08:40)
[2016-12-28 08:36] LABS: AUTOMATED NEUTROPHIL # 6.3 TH/MM3 (1.8-7.7); BASOPHIL # 0.1 TH/MM3 (0-0.2); BASOPHIL % 0.8 % (0.0-2.0); EOSINOPHIL # 0.2 TH/MM3 (0-0.4); EOSINOPHIL % 1.7 % (0.0-4.0); HEMATOCRIT 41.5 % (35.0-46.0); HEMO FLAGS DIFF FINAL; MEAN CELL VOLUME 87.7 FL (80.0-100.0); MEAN CORPUSCULAR HEMOGLOBIN 29.5 PG (27.0-34.0); MEAN CORPUSCULAR HGB CONC 33.6 % (32.0-36.0); MONO % 6.5 % (0.0-8.0); PLATELET COUNT 265 TH/MM3 (150-450); RED BLOOD COUNT 4.74 MIL/MM3 (4.00-5.30); RED CELL DISTRIBUTION WIDTH 12.9 % (11.6-17.2); WHITE BLOOD COUNT 10.3 TH/MM3 (4.0-11.0)
--- NOTE | 2016-12-28 08:40 | PD ---
HPI Chief Complaint: Chest Pain Time Seen by Provider: 08:23 Travel History International Travel<30 days: No Contact w/Intl Traveler<30days: No Traveled to known affect area: No History of Present Illness HPI Patient is a 71-year-old female with history of hypertension, ckd, polymyalgia rheumatica and recently diagnosed pulmonary embolism who presents to emergency with complaints of chest pain. Patient reports that she woke up around 7 AM began having right-sided chest pain. Reports that her pain is sharp and stabbing in nature, reports it does reach her shoulder blade. Patient reports that chest pain is worse with taking a deep breath, she is having no diaphoresis with her symptoms. Patient reports that she was diagnosed with multilobar PE back in October, reports that she is taking Coumadin for this, less INR 2 weeks ago was 1.8. Patient reports no history of chest pain in the past. PFSH Past Medical History Hx Anticoagulant Therapy: Yes (COUMADIN) Arthritis: No Asthma: Yes (SLIGHT ASTHMA INDICATED BY PULM FUNCTION TESTS ) Autoimmune Disease: No Blood Disorders: No Anxiety: Yes Depression: Yes Heart Rhythm Problems: No Cancer: No Cardiovascular Problems: Yes (HTN, BLOOD CLOTS IN LUNGS IN THE PAST) High Cholesterol: Yes Chemotherapy: No Chest Pain: No Congestive Heart Failure: No COPD: No Cerebrovascular Accident: No Diabetes: No Diminished Hearing: No Endocrine: No Gastrointestinal Disorders: Yes GERD: Yes Glaucoma: No Genitourinary: Yes Headaches: No Hepatitis: No Hiatal Hernia: Yes Heparin Induced Thrombocytopen: No Hypertension: Yes Immune Disorder: Yes (PMR polymyalgia rheumatica) Implanted Vascular Access Dvce: No Kidney Stones: No Musculoskeletal: No Neurologic: No Psychiatric: Yes Reproductive: No Respiratory: Yes Migraines: No Myocardial Infarction: No Radiation Therapy: No Renal Failure: Yes (ACUTE RENAL INCIDENT FROM SURGERY LOW BLOOD PRESSURE ISSUE) Seizures: No Sickle Cell Disease: No Thyroid Disease: No Ulcer: No Tetanus Vaccination: Unknown ?: Not Past Surgical History Abdominal Surgery: Yes (APPENDECTOMY, CHOLESCYSTECTOMY, HERNIA REPAIR X 5, ) AICD: No Appendectomy: Yes Arteriovenous Shunt: No Cardiac Surgery: No Cholecystectomy: Yes Ear Surgery: No Endocrine Surgery: No Eye Surgery: Yes (CATARACTS ) Genitourinary Surgery: No Gynecologic Surgery: Yes (HYSTERECTOMY ) Hysterectomy: Yes Insulin Pump: No Joint Replacement: No Neurologic Surgery: No Oral Surgery: Yes (TONSILECTOMY, WISODM TEETH ) Pacemaker: No Thoracic Surgery: No Other Surgery: Yes (HERNIA REPAIR) Social History Alcohol Use: No Tobacco Use: No Substance Use: No Allergies-Medications (Allergen,Severity, Reaction): Coded Allergies: No Known Allergies (Verified , 11/07/16) Reported Meds & Prescriptions Reported Meds & Active Scripts Active Reported Warfarin 6 Mg Tab 6 Mg PO DAILY [Fiber Gummies] Stool Softener (Docusate Sodium) 100 Mg Tab 1 Tab PO BID Prednisone 5 Mg Tab 10 Mg PO DAILY Fish Oil + D3 (Fish Oil-Cholecalciferol) 1,200-1,000 Mg-Unit Cap 1 Cap PO DAILY Alendronate (Alendronate Sodium) 70 Mg Tab 70 Mg PO Q7D Omeprazole 20 Mg Tab 20 Mg PO DAILY Furosemide 20 Mg Tab 20 Mg PO DAILY Potassium Chloride ER (Potassium Chloride) 10 Meq Tab 10 Meq PO DAILY Atenolol 25 Mg Tab 25 Mg PO DAILY Calcium 500 +D (Calcium Carbonate-Cholecalciferol) 500-400 Mg-Unit Tab 1 Tab PO BID Review of Systems General / Constitutional: No: Fever Eyes: No: Visual changes HENT: No: Headaches Cardiovascular: Positive: Chest Pain or Discomfort Respiratory: Positive: Shortness of Breath Gastrointestinal: No: Abdominal Pain Genitourinary: No: Dysuria Musculoskeletal: No: Pain Skin: No Rash Neurologic: No: Weakness Psychiatric: No: Depression Endocrine: No: Polydipsia Hematologic/Lymphatic: No: Easy Bruising Physical Exam Narrative GENERAL: mild distress SKIN: Focused skin assessment warm/dry. HEAD: Atraumatic. Normocephalic. EYES: Pupils equal and round. No scleral icterus. No injection or drainage. ENT: No nasal bleeding or discharge. Mucous membranes pink and moist. NECK: Trachea midline. No JVD. CARDIOVASCULAR: Regular rate and rhythm. No murmur appreciated. RESPIRATORY: No accessory muscle use. Clear to auscultation. Breath sounds equal bilaterally. GASTROINTESTINAL: Abdomen soft, non-tender, nondistended. Hepatic and splenic margins not palpable. MUSCULOSKELETAL: No obvious deformities. No clubbing. No cyanosis. No edema. NEUROLOGICAL: Awake and alert. No obvious cranial nerve deficits. Motor grossly within normal limits. Normal speech. PSYCHIATRIC: Appropriate mood and affect; insight and judgment normal. Data Data Last Documented VS Vital Signs Date Time Temp Pulse Resp B/P Pulse Ox O2 Delivery O2 Flow Rate FiO2 12/28/16 08:44 63 16 149/66 96 Nasal Cannula 2 12/28/16 08:19 97.7 Orders Electrocardiogram (12/28/16 08:23) B-Type Natriuretic Peptide (12/28/16 08:23) Ckmb (Isoenzyme) Profile (12/28/16 08:23) Complete Blood Count With Diff (12/28/16 08:23) Comprehensive Metabolic Panel (12/28/16 08:23) Magnesium (Mg) (12/28/16 08:23) Prothrombin Time / Inr (Pt) (12/28/16 08:23) Act Partial Throm Time (Ptt) (12/28/16 08:23) Troponin I (12/28/16 08:23) Lipase (12/28/16 08:23) Chest, Single Ap (12/28/16 08:23) Ecg Monitoring (12/28/16 08:23) Iv Access Insert/Monitor (12/28/16 08:23) Oximetry (12/28/16 08:23) Aspirin Chew (Aspirin Chew) (12/28/16 08:30) Sodium Chloride 0.9% Flush (Ns Flush) (12/28/16 08:30) Nitroglycerin Sl (Nitrostat Sl) (12/28/16 08:30) Sodium Chlorid 0.9% 500 Ml Inj (Ns 500 M (12/28/16 08:30) CKMB (12/28/16 08:20) CKMB% (12/28/16 08:20) Admit Order (Ed Use Only) (12/28/16 10:29) Ct Pulmonary Angiogram (12/28/16 10:30) Labs Laboratory Tests Test 12/28/16 08:20 White Blood Count 10.3 TH/MM3 Red Blood Count 4.74 MIL/MM3 Hemoglobin 13.9 GM/DL Hematocrit 41.5 % Mean Corpuscular Volume 87.7 FL Mean Corpuscular Hemoglobin 29.5 PG Mean Corpuscular Hemoglobin 33.6 % Concent Red Cell Distribution Width 12.9 % Platelet Count 265 TH/MM3 Mean Platelet Volume 7.6 FL Neutrophils (%) (Auto) 62.0 % Lymphocytes (%) (Auto) 29.0 % Monocytes (%) (Auto) 6.5 % Eosinophils (%) (Auto) 1.7 % Basophils (%) (Auto) 0.8 % Neutrophils # (Auto) 6.3 TH/MM3 Lymphocytes # (Auto) 3.0 TH/MM3 Monocytes # (Auto) 0.7 TH/MM3 Eosinophils # (Auto) 0.2 TH/MM3 Basophils # (Auto) 0.1 TH/MM3 CBC Comment DIFF FINAL Differential Comment Prothrombin Time 64.2 SEC Prothromb Time International 5.4 RATIO Ratio Activated Partial 42.5 SEC Thromboplast Time Sodium Level 142 MEQ/L Potassium Level 3.7 MEQ/L Chloride Level 104 MEQ/L Carbon Dioxide Level 30.1 MEQ/L Anion Gap 8 MEQ/L Blood Urea Nitrogen 16 MG/DL Creatinine 0.89 MG/DL Estimat Glomerular Filtration 62 ML/MIN Rate Random Glucose 113 MG/DL Calcium Level 8.9 MG/DL Magnesium Level 1.8 MG/DL Total Bilirubin 0.3 MG/DL Aspartate Amino Transf 22 U/L (AST/SGOT) Alanine Aminotransferase 25 U/L (ALT/SGPT) Alkaline Phosphatase 45 U/L Total Creatine Kinase 124 U/L Creatine Kinase MB 1.6 NG/ML Troponin I LESS THAN 0.02 NG/ML B-Type Natriuretic Peptide 57 PG/ML Total Protein 7.1 GM/DL Albumin 3.2 GM/DL Lipase 182 U/L [facility] Medical Decision Making Medical Screen Exam Complete: Yes Emergency Medical Condition: Yes Interpretation(s) ekg from 814: NSR at 74bpm, qt/qtc: 396/420, rbbb Vital Signs Date Time Temp Pulse Resp B/P Pulse Ox O2 Delivery O2 Flow Rate FiO2 12/28/16 08:26 16 98 Nasal Cannula 2 12/28/16 08:24 16 93 Nasal Cannula 2 12/28/16 08:19 97.7 70 16 189/73 93 Differential Diagnosis ACS, arrhythmia, PE, electrolyte abnormality, pneumothorax Narrative Course Patient is a 71 year old female who presents to ER with c/o of chest pain which started around 7pm tonight. Patient reports chest pain is worse with taking a deep breath Patient was placed on a automatic corn grinder operator upon arrival to the emergency room. EKG obtained. Will check lab work and cardiac enzymes. Will give nitro for chest pain Laboratory Tests Test 12/28/16 08:20 White Blood Count 10.3 TH/MM3 (4.0-11.0) Red Blood Count 4.74 MIL/MM3 (4.00-5.30) Hemoglobin 13.9 GM/DL (11.6-15.3) Hematocrit 41.5 % (35.0-46.0) Mean Corpuscular Volume 87.7 FL (80.0-100.0) Mean Corpuscular Hemoglobin 29.5 PG (27.0-34.0) Mean Corpuscular Hemoglobin 33.6 % Concent (32.0-36.0) Red Cell Distribution Width 12.9 % (11.6-17.2) Platelet Count 265 TH/MM3 (150-450) Mean Platelet Volume 7.6 FL (7.0-11.0) Neutrophils (%) (Auto) 62.0 % (16.0-70.0) Lymphocytes (%) (Auto) 29.0 % (9.0-44.0) Monocytes (%) (Auto) 6.5 % (0.0-8.0) Eosinophils (%) (Auto) 1.7 % (0.0-4.0) Basophils (%) (Auto) 0.8 % (0.0-2.0) Neutrophils # (Auto) 6.3 TH/MM3 (1.8-7.7) Lymphocytes # (Auto) 3.0 TH/MM3 (1.0-4.8) Monocytes # (Auto) 0.7 TH/MM3 (0-0.9) Eosinophils # (Auto) 0.2 TH/MM3 (0-0.4) Basophils # (Auto) 0.1 TH/MM3 (0-0.2) CBC Comment DIFF FINAL Differential Comment Prothrombin Time 64.2 SEC (9.8-11.6) Prothromb Time International 5.4 RATIO Ratio Activated Partial 42.5 SEC Thromboplast Time (24.3-30.1) Sodium Level 142 MEQ/L (136-145) Potassium Level 3.7 MEQ/L (3.5-5.1) Chloride Level 104 MEQ/L (98-107) Carbon Dioxide Level 30.1 MEQ/L (21.0-32.0) Anion Gap 8 MEQ/L (5-15) Blood Urea Nitrogen 16 MG/DL (7-18) Creatinine 0.89 MG/DL (0.50-1.00) Estimat Glomerular Filtration 62 ML/MIN (>89) Rate Random Glucose 113 MG/DL (74-106) Calcium Level 8.9 MG/DL (8.5-10.1) Magnesium Level 1.8 MG/DL (1.5-2.5) Total Bilirubin 0.3 MG/DL (0.2-1.0) Aspartate Amino Transf 22 U/L (15-37) (AST/SGOT) Alanine Aminotransferase 25 U/L (10-53) (ALT/SGPT) Alkaline Phosphatase 45 U/L (45-117) Total Creatine Kinase 124 U/L (26-192) Creatine Kinase MB 1.6 NG/ML (0.5-3.6) Troponin I LESS THAN 0.02 NG/ML (0.02-0.05) B-Type Natriuretic Peptide 57 PG/ML (0-100) Total Protein 7.1 GM/DL (6.4-8.2) Albumin 3.2 GM/DL (3.4-5.0) Lipase 182 U/L (73-393) Last Impressions Chest X-Ray 12/28/16 0823 Signed Impressions: Service Date/Time: Wednesday, December 28, 2016 09:10 - CONCLUSION: No acute disease. Vince Rios Jr., MD Patient currently chest pain-free after 1 sublingual nitroglycerin. Plan to obs to CDU case discussed with dr. flores, request CTA prior to admission to CDU, INR 5.4 - would like to see if patient is failing treatment for her PE, CTA will give clearer picture as to if her cp is cardiac in nature vs pleuritic from PE Diagnosis Primary Impression: Chest pain in adult Admitting Information Admitting Physician Requests: Xochitl Novak DO Dec 28, 2016 08:40
[2016-12-28] MEDS ORDERED: WARF-60 PO (08:42)
[2016-12-28 08:45] LABS: APTT (PATIENT) 42.5 SEC (24.3-30.1); CHLORIDE 104 MEQ/L (98-107); INTERNATIONAL NORMALIZED RATIO 5.4 RATIO; POTASSIUM 3.7 MEQ/L (3.5-5.1); PROTHROMBIN TIME - PATIENT 64.2 SEC (9.8-11.6); SODIUM (NA) 142 MEQ/L (136-145)
[2016-12-28 08:50] LABS: ANION GAP 8 MEQ/L (5-15); BICARBONATE 30.1 MEQ/L (21.0-32.0); BLOOD UREA NITROGEN 16 MG/DL (7-18); MAGNESIUM 1.8 MG/DL (1.5-2.5)
[2016-12-28 08:53] LABS: ALT (GPT) 25 U/L (10-53); AST (GOT) 22 U/L (15-37); GLOMERULAR FILTRATION RATE 62 ML/MIN (>89)
[2016-12-28 08:54] LABS: TOTAL BILIRUBIN ADULT 0.3 MG/DL (0.2-1.0)
[2016-12-28 08:55] LABS: ALKALINE PHOSPHATASE 45 U/L (45-117); CREATINE KINASE 124 U/L (26-192)
[2016-12-28 09:07] LABS: CKMB 1.6 NG/ML (0.5-3.6)
--- NOTE | 2016-12-28 09:33 | RADHPO ---
EXAM DATE/TIME: 12/28/2016 09:10 [facility] COMPARISON: CHEST SINGLE AP, November 07, 2016, 14:01. INDICATIONS : Right side chest pain on inspiration. MEDICAL HISTORY : Hypertension. Hypercholesterolemia. Hiatal hernia. GERD. Asthma. Blood clots. SURGICAL HISTORY : Tonsillectomy. Appendectomy. Cholecystectomy. Hernia repair. Hysterectomy. Right ankle. Right knee, ENCOUNTER: Initial ACUITY: 1 day PAIN SCORE: 7/10 LOCATION: Right chest FINDINGS: A single view of the chest demonstrates the lungs to be symmetrically aerated without evidence of mas s, infiltrate or effusion. The cardiomediastinal contours are unremarkable. Osseous structures are intact. CONCLUSION: No acute disease. Vince Rios Jr., MD on December 28, 2016 at 9:31 Board Certified Radiologist. This report was verified electronically.
[2016-12-28] MEDS ORDERED: IOHEXOL 350 MG/ML 10 ML VIAL (for RAD DIAG) IV ONE (11:58)
--- NOTE | 2016-12-28 12:29 | RADHPO ---
EXAM DATE/TIME: 12/28/2016 11:37 [facility] COMPARISON: CT PULMONARY ANGIOGRAM, November 07, 2016, 19:05. INDICATIONS : Right chest pain on inspiration since last night. IV CONTRAST: 80 cc Omnipaque 350 (iohexol) IV RADIATION DOSE: 20.64 CTDIvol (mGy) MEDICAL HISTORY : Cardiovascular disease. Hypertension. SURGICAL HISTORY : Appendectomy. Cholecystectomy.Hysterectomy.Hernia repair x 5 ENCOUNTER: Initial ACUITY: 1 day PAIN SCALE: 5/10 LOCATION: Bilateral chest TECHNIQUE: Volumetric scanning of the chest was performed using a pulmonary embolism protocol MIP images were re constructed. Using automated exposure control and adjustment of the mA and/or kV according to patien t size, radiation dose was kept as low as reasonably achievable to obtain optimal diagnostic quality images. FINDINGS: The examination is of good diagnostic quality. The previously seen pulmonary embolus as resolved. No new embolic disease is seen. There is no significant hilar or mediastinal adenopathy. The heart is normal in size. Evaluation of the pulmonary parenchyma demonstrates a focal area of wedge-shaped peripheral infiltrat e in the posterior aspect of the right upper lobe. This probably represents an area of pulmonary infa rct or Ott's hump from the patient's previous pulmonary embolic disease. This was not seen on pre vious dated 11/07/16. There is no pleural effusion. The visualized bony structures are grossly intact. Imaging through the upper abdomen is unremarkable. CONCLUSION: 1. Small area of consolidation along the peripheral margin of the posterior aspect of the right upper lobe. This is wedge shaped and may represent a Ott hump or area of pulmonary infarct from the pa tient's known previous pulmonary embolus. 2. The central pulmonary embolic disease which was seen on previous study of 11/07/16 is no longer tiffany ntified on today's exam. Francisco Dumont MD on December 28, 2016 at 12:25 Board Certified Radiologist. This report was verified electronically.
[2016-12-28] MEDS ORDERED: ONDANSETRON HCL 4 MG/2 ML VIAL IVP PRN (13:15)
[2016-12-28] MEDS ORDERED: NALOXONE HCL 0.4 MG/ML AMP IV PRN (13:15)
[2016-12-28] MEDS ORDERED: LACTULOSE SYRUP 20 GM/30 ML CUP PO PRN (13:15)
[2016-12-28] MEDS ORDERED: SODIUM CHLORIDE 0.9% FLUSH 10 ML FLUSH IV FLUSH PRN (13:15)
[2016-12-28] MEDS ORDERED: MAGNESIUM HYDROXIDE SUSP 30 ML CUP PO PRN (13:15)
[2016-12-28] MEDS ORDERED: ACETAMINOPHEN 325 MG TAB PO PRN (13:15)
[2016-12-28] MEDS ORDERED: SENNOSIDES 8.6 MG TAB PO PRN (13:15)
[2016-12-28] MEDS ORDERED: BISACODYL 10 MG SUPP RECTAL PRN (13:15)
[2016-12-28] MEDS ORDERED: ALENDRONATE SODIUM 70 MG TAB PO SCH (14:30)
--- NOTE | 2016-12-28 14:41 | HHI.HP ---
[facility] Primary [facility] Physician Non-Staff Admission Diagnosis chest pain Diagnoses: (1) Pleuritic chest pain Diagnosis: Principal (2) History of pulmonary embolism Diagnosis: Secondary (3) Hypertension Diagnosis: Secondary (4) Hyperlipidemia Diagnosis: Secondary Chief Complaint: Chest pain Travel History International Travel<30 Days: No Contact w/Intl Traveler <30 Da: No Traveled to Known Affected Are: No History of Present Illness Written by Alfredo Sapp, acting as scribe for Dr. Mayer on 12/28/16 at 14: 29. 71-year-old female with known history of hypertension, hyperlipidemia , recent pulmonary emboli, gastroesophageal reflux, polymyalgia rheumatica, who presented to hospital because acute onset chest discomfort. Patient states that she has normal state of health until this morning when she developed a chest discomfort in the right anterior chest which is described as a start stabbing pain that is worse when she takes a deep breath or moves. Patient recently diagnosed and treated for pulmonary emboli since 11/07/16. Patient is being followed by Dr. Dudley in outpatient setting for Coumadin management. Patient states that recent Coumadin was 1.8. Her medication was just increased to 6 mg daily. Patient denies any nausea, vomiting, diaphoresis, shortness of breath, lightheadedness, dizziness. Patient has had recent stress test done in September 2016 by her primary medical doctor in [place]. She states that she had a nuclear stress test performed that time it was normal. ER physician recommended patient be observed in the hospital for further evaluation management. Pulmonary angiogram was requested which did indicate possible pulmonary infarct, Ott's hump at the site of pain and previous pulmonary emboli. Discussed with program manager rn who indicated this could be painful secondary to the findings and or pleurisy. Upon evaluating the patient, she is rather asymptomatic. She is very eager to go home and plans a going home tomorrow morning. Review of Systems Constitutional: DENIES: Diaphoretic episodes, Fatigue, Fever, Weight gain, Weight loss, Chills, Dizziness, Change in appetite, Night Sweats Eyes: DENIES: Blurred vision, Diplopia, Eye inflammation, Eye pain, Vision loss , Double Vision Ears, nose, mouth, throat: DENIES: Vertigo, Nasal discharge, Throat pain, Ear Pain, Running Nose, Sinus Pain Respiratory: DENIES: Apneas, Cough, Snoring, Wheezing, Hemoptysis, Sputum production, Shortness of breath Cardiovascular: COMPLAINS OF: Chest pain, DENIES: Palpitations, Syncope, Dyspnea on Exertion, Lower Extremity Edema, Orthopnea Gastrointestinal: DENIES: Abdominal pain, Black stools, Bloody stools, Constipation, Diarrhea, Nausea, Vomiting, Difficulty Swallowing, Anorexia Musculoskeletal: DENIES: Joint pain, Muscle aches, Stiffness, Joint Swelling, Back pain, Neck pain Neurologic: DENIES: Abnormal gait, Headache, Localized weakness, Paresthesias, Seizures, Speech Problems, Tremor, Poor Balance Past Family Social History Past Medical History Hypertension Hyperlipidemia Recent pulmonary emboli Polymyalgia rheumatica Gastroesophageal reflux Osteoporosis Coumadin therapy Anxiety depression Past Surgical History Hysterectomy Cholecystectomy Appendectomy Hernia repair Right ankle surgery Right knee orthoscopic procedure Cataract surgery Tonsillectomy Reported Medications Last Impressions CT Angiography 12/28/16 1030 Signed Impressions: Service Date/Time: Wednesday, December 28, 2016 11:37 - CONCLUSION: 1. Small area of consolidation along the peripheral margin of the posterior aspect of the right upper lobe. This is wedge shaped and may represent a Ott hump or area of pulmonary infarct from the patient's known previous pulmonary embolus. 2. The central pulmonary embolic disease which was seen on previous study of 11/07/16 is no longer identified on today's exam. Francisco Dumont MD Chest X-Ray 12/28/16 0823 Signed Impressions: Service Date/Time: Wednesday, December 28, 2016 09:10 - CONCLUSION: No acute disease. Vince Rios Jr., MD Allergies: Coded Allergies: No Known Allergies (Verified , 11/07/16) Family History Reviewed is significant for congestive heart failure, denies any diabetes, cancer, seizures, stroke Social History Denies any tobacco, alcohol or illicit drugs Physical Exam Vital Signs Vital Signs Date Time Temp Pulse Resp B/P Pulse Ox O2 Delivery O2 Flow Rate FiO2 12/28/16 12:51 96.6 60 20 133/71 96 12/28/16 11:33 61 17 119/62 96 12/28/16 08:44 63 16 149/66 96 Nasal Cannula 2 12/28/16 08:26 16 98 Nasal Cannula 2 12/28/16 08:24 16 93 Nasal Cannula 2 12/28/16 08:19 97.7 70 16 189/73 93 Physical Exam GENERAL: Well-developed, well-nourished, in no acute distress. alert and orientated HEENT: Head is normocephalic without any lesions or masses noted. Facial features are symmetric. Eyes: Pupils equal round reactive to light. Extraocular muscles are intact. Conjunctivae were clear. Oropharyngeal: Pharynx without any erythema edema. Tongue is midline without deviation. Buccal mucosa is moist without any masses or lesions NECK: Supple without any masses. Trachea midline no deviation. No JVD, no bruits are appreciated CARDIAC: Regular rhythm, regular rate. S1/S2 are heard. No murmurs gallops or rubs. LUNGS: Clear to auscultation bilaterally. No wheeze, rhonchi or rales. No use of accessory muscles on inspiration or expiration. ABDOMEN: Soft, nontender. Nondistended. Bowel sounds heard in all 4 quadrants. No organomegaly or masses. Negative rebound, negative guarding EXTREMITIES: No edema, pulses are equal bilaterally. No cyanosis or clubbing NEUROLOGY: Mood and affect appear appropriate. Cranial nerves II through XII grossly intact. Muscle strength 5/5 in upper and lower extremities bilaterally. Deep tendon reflexes are 2+ in upper and lower extremities bilaterally. Laboratory Laboratory Tests Test 12/28/16 08:20 White Blood Count 10.3 Red Blood Count 4.74 Hemoglobin 13.9 Hematocrit 41.5 Mean Corpuscular Volume 87.7 Mean Corpuscular Hemoglobin 29.5 Mean Corpuscular Hemoglobin 33.6 Concent Red Cell Distribution Width 12.9 Platelet Count 265 Mean Platelet Volume 7.6 Neutrophils (%) (Auto) 62.0 Lymphocytes (%) (Auto) 29.0 Monocytes (%) (Auto) 6.5 Eosinophils (%) (Auto) 1.7 Basophils (%) (Auto) 0.8 Neutrophils # (Auto) 6.3 Lymphocytes # (Auto) 3.0 Monocytes # (Auto) 0.7 Eosinophils # (Auto) 0.2 Basophils # (Auto) 0.1 CBC Comment DIFF FINAL Differential Comment Prothrombin Time 64.2 Prothromb Time International 5.4 Ratio Activated Partial 42.5 Thromboplast Time Sodium Level 142 Potassium Level 3.7 Chloride Level 104 Carbon Dioxide Level 30.1 Anion Gap 8 Blood Urea Nitrogen 16 Creatinine 0.89 Estimat Glomerular Filtration 62 Rate Random Glucose 113 Calcium Level 8.9 Magnesium Level 1.8 Total Bilirubin 0.3 Aspartate Amino Transf 22 (AST/SGOT) Alanine Aminotransferase 25 (ALT/SGPT) Alkaline Phosphatase 45 Total Creatine Kinase 124 Creatine Kinase MB 1.6 Troponin I LESS THAN 0.02 B-Type Natriuretic Peptide 57 Total Protein 7.1 Albumin 3.2 Lipase 182 Result Diagram: 12/28/16 0820 12/28/16 [address] Angiography 12/28/16 1030 Signed Impressions: Service Date/Time: Wednesday, December 28, 2016 11:37 - CONCLUSION: 1. Small area of consolidation along the peripheral margin of the posterior aspect of the right upper lobe. This is wedge shaped and may represent a Ott hump or area of pulmonary infarct from the patient's known previous pulmonary embolus. 2. The central pulmonary embolic disease which was seen on previous study of 11/07/16 is no longer identified on today's exam. Francisco Dumont MD Chest X-Ray 12/28/16822 Signed Impressions: Service Date/Time: Wednesday, December 28, 2016 09:10 - CONCLUSION: No acute disease. Vince Rios Jr., MD Assessment and Plan Assessment and Plan Pleuritic chest pain Likely secondary to possible pulmonary infarct, Ott's hump, pulmonary emboli. Unlikely secondary to cardiac etiology. Patient with increased risk factors include age, family history. Patient with recent nuclear stress test in [place] that was negative Continue pain control New Car Inspector consulted for recommendations secondary to CT findings Continue to rule out any acute coronary event with serial cardiac enzymes and serial EKGs. Supratherapeutic Coumadin. INR of 5.4 Continue to hold Coumadin Monitor PT/INR daily We will defer to outpatient primary medical doctor for management upon discharge. - We can consider decreasing Coumadin to 5 mg daily on discharge. Pulmonary emboli CT scan shows resolution of emboli at this time Continue anticoagulation Hypertension, Continue home medications DVT prevention Patient is on Coumadin. INR supratherapeutic This note was transcribed by [email or web address] [Alfredo Sapp]. I, Dr. Jeremiah Mayer personally performed the history, physical exam, and medical decision making; and confirmed the accuracy of the information in the transcribed note. Authenticated by Dr. Jeremiah Mayer on 12/28/16 at 1435. Problem Qualifiers (1) Hypertension: Qualified Code: I15.9 - Secondary hypertension (2) Hyperlipidemia: Qualified Code: E78.5 - Hyperlipidemia, unspecified hyperlipidemia type Alfredo Sapp Dec 28, 2016 14:41 Jeremiah Mayer MD Dec 28, 2016 17:26
[2016-12-28 14:43] LABS: CREATINE KINASE 97 U/L (26-192)
--- NOTE | 2016-12-28 14:51 | EKG ---
Date Performed: 12/28/2016 Time Performed: 08:15:04 PTAGE: 71 years EKG: Sinus rhythm Right bundle branch block Abnormal ECG Compared to the PREVIOUS TRACING from 11/07/16, no significant change DOCTOR: Aguila Juarez Interpretating Date/Time 12/28/2016 14:51:28
--- NOTE | 2016-12-28 18:34 | MB ---
cc: DONALD GRIMES DATE OF CONSULTATION 12/28/16 HISTORY OF PRESENT ILLNESS Ms. Stewart is a 71-year-old white female who presented to the emergency room this morning with acute right-sided chest pain. She presented on 11/07/2016 with shortness of breath and extensive pulmonary embolism. She had just completed a rather long drain trip from [place], arrived several days prior to that and began to have more shortness of breath. She had a prior history of mild asthma but her inhaler was not effective so she presented to the hospital and again the CTA at that time was interpreted as revealing extensive pulmonary embolism beginning in the right and left main pulmonary arteries involving most segments of the lung. She actually did quite well during that hospitalization. She was anticoagulated and discharged on warfarin. She has been followed by Dr. Dudley as an outpatient and her last INR about a week ago was 1.8. Her dose was increased from 2.5 milligrams to 6 milligrams. Since discharge from the hospital she has had no significant shortness of breath. No chest pain. No cough. No hemoptysis. No unusual bleeding. This morning she awoke and developed pleuritic chest pain. She felt fine without fever, cough, congestion, shortness of breath. She only noticed the pain on deep inspiration but because of the recent history and because of her concern about these recent medical issues she presented to the emergency room. A followup CTA was done today that revealed clearance of the central pulmonary emboli but she had a new wedge shape defect in the right upper lobe, possibly an area of infarction. There was no pleural effusion. No other infiltrate. Her INR on presentation today was 5.4. At the time that I saw the patient afternoon all of her pain had resolved. She has no shortness of breath. No fever. She has had no cough or congestion or purulent sputum. No swelling in her legs. Dopplers of her legs on the previous admission were negative. PAST MEDICAL HISTORY Hypertension, polymyalgia rheumatica. She had been down to about 1 or 2 milligrams of prednisone but recently she had increasing musculoskeletal aches and pains so she pushed her dose back to 10 milligrams. Has a "slight" case of asthma, has an albuterol inhaler which was prescribed in [place] that she really has not used at all. She has a history of depression, mild reflux disease. She has had a previous appendectomy, cholecystectomy, hernia repair and hysterectomy. No prior history of malignancy or significant cardiovascular disease such as myocardial infarction or stroke. ALLERGIES None known. MEDICATIONS Reviewed in the EMR. SOCIAL HISTORY She does not smoke. She never had a heavy smoking history. No alcohol use to any extent. She lives in [place] and has been vacationing here since October. PHYSICAL EXAMINATION GENERAL: She is awake, alert, very comfortable at rest. VITAL SIGNS: Afebrile, respirations 18, pulse 60, O2 saturation on room air 96% and blood pressure 130/70. HEENT: Sclerae anicteric. Pharynx is clear. NECK: Neck veins are flat. No adenopathy in neck or supraclavicular region. CHESET: Her chest is entirely clear. No congestion. No wheezing. No pleural rubs. HEART: Regular rhythm. No harsh murmur. ABDOMEN: Abdomen is soft. Nontender. No peripheral edema, cyanosis or clubbing. LABORATORY DATA White count 10,000, hemoglobin is 13, INR 5.4. DISCUSSION Ms. Stewart presented with rather acute onset of pleuritic pain on the right side this morning and she does have a small wedge shaped defect which may be a small infarction. She is actually over anticoagulated at present and there is no evidence from the CT that she is having recurrent embolism on therapy. However, in light of the sudden change in transient pain, I would suggest observation over the next 24 hours and make appropriate adjustments in her warfarin which has been held at this point. I explained to the patient that it does not appear that she has had any recurrent embolism. This may be a pleuritic pain due to a small area of infarction or with the very high INR, maybe even a small area of bleeding, although, she has no hemoptysis. If the patient remains stable with normal O2 saturations consider discharge tomorrow with further followup and adjustment in the warfarin of course with Dr. Dudley who has seen her as an outpatient. Although, she has a history of "slight" asthma I do not see any indication that she is short of breath at the present time and she has no wheezing or congestion, this is likely acute asthmatic episode. Further diagnostic and/or therapeutic intervention will depend on her ongoing clinical course. R. MD NEIL Armando/VALERIA /4:22 PM /6:23 PM
[2016-12-28 19:23] LABS: CREATINE KINASE 88 U/L (26-192)
[2016-12-28] MEDS ORDERED: SODIUM CHLORIDE 0.9% FLUSH 10 ML FLUSH IV FLUSH SCH (21:00)
[2016-12-28] MEDS ORDERED: CALCIUM/VITAMIN D 250 MG/125 U TAB PO SCH (21:00)
[2016-12-28] MEDS ORDERED: DOCUSATE SODIUM 50 MG/SENNA 8.6 MG TAB PO SCH (21:00)
[2016-12-29] VITALS: BP 129/67; PULSE 64; RESP 20; TEMP 97.1; O2SAT 98
[2016-12-29 04:00] VITALS: BP 112/61; PULSE 60; RESP 20; TEMP 96.8; O2SAT 98
[2016-12-29 06:14] LABS: POTASSIUM 3.6 MEQ/L (3.5-5.1)
[2016-12-29 06:50] LABS: INTERNATIONAL NORMALIZED RATIO 4.2 RATIO
[2016-12-29 08:00] VITALS: BP 139/70; PULSE 61; RESP 16; TEMP 96.7; O2SAT 95
[2016-12-29] MEDS ORDERED: FUROSEMIDE 20 MG TAB PO SCH (09:00)
[2016-12-29] MEDS ORDERED: ATENOLOL 25 MG TAB PO SCH (09:00)
[2016-12-29] MEDS ORDERED: POTASSIUM CHLORIDE 10 MEQ CONTROLLED RELEASE TAB PO SCH (09:00)
[2016-12-29] MEDS ORDERED: predniSONE 10 MG TAB PO SCH (09:00)
[2016-12-29] MEDS ORDERED: PANTOPRAZOLE SOD 20 MG DELAYED RELEASE TAB PO SCH (09:00)
[2016-12-29] MEDS ORDERED: WARF-58 PO (09:42)
--- NOTE | 2016-12-29 09:42 | HHI.DCPOC ---
Discharge Care Plan Diagnosis: (1) Pleuritic chest pain (2) History of pulmonary embolism (3) Hypertension (4) Hyperlipidemia Goals to Promote Your Health * To prevent worsening of your condition and complications * To maintain your health at the optimal level Directions to Meet Your Goals Take your medications as prescribed Follow your dietary instruction Follow activity as directed Keep your appointments as scheduled Take your immunizations and boosters as scheduled If your symptoms worsen call your PCP, if no PCP go to Urgent Care Center or Emergency Room Smoking is Dangerous to Your Health. Avoid second hand smoke Call the 24-hour hour crisis hotline for domestic abuse at Jeremiah Mayer MD Dec 29, 2016 09:42
--- NOTE | 2016-12-29 09:43 | HHI.PR ---
Subjective Remarks Patient reports that she is feeling great. No longer having pleuritic chest pain. No shortness of breath. Feels comfortable with going home. We discussed discharge planning at length, adjustment of Coumadin, and follow-up with PCP. Objective Vitals Vital Signs Date Time Temp Pulse Resp B/P Pulse Ox O2 Delivery O2 Flow Rate FiO2 12/29/16 08:00 96.7 61 16 139/70 95 12/29/16 04:00 96.8 60 20 112/61 98 12/29/16 00:00 97.1 64 20 129/67 98 12/28/16 20:16 94 21 12/28/16 20:00 96.3 60 20 115/59 98 12/28/16 20:00 62 12/28/16 16:00 96.9 63 20 123/63 98 12/28/16 14:29 58 12/28/16 14:00 96 Nasal Cannula 2.00 12/28/16 12:51 96.6 60 20 133/71 96 12/28/16 11:33 61 17 119/62 96 I/O 12/28/16 12/28/16 12/28/16 12/29/16 12/29/16 12/29/16 07:00 15:00 23:00 07:00 15:00 23:00 Intake Total 1220 ml 240 ml 240 ml Balance 1220 ml 240 ml 240 ml Intake Oral 720 ml 240 ml 240 ml IV Total 500 ml # Voids 1 2 3 # Bowel Movements 0 0 Result Diagram: 12/28/16 0820 12/29/16 [address] Angiography 12/28/16 1030 Signed Impressions: Service Date/Time: Wednesday, December 28, 2016 11:37 - CONCLUSION: 1. Small area of consolidation along the peripheral margin of the posterior aspect of the right upper lobe. This is wedge shaped and may represent a Ott hump or area of pulmonary infarct from the patient's known previous pulmonary embolus. 2. The central pulmonary embolic disease which was seen on previous study of 11/07/16 is no longer identified on today's exam. Francisco Dumont MD Chest X-Ray 12/28/16 0823 Signed Impressions: Service Date/Time: Wednesday, December 28, 2016 09:10 - CONCLUSION: No acute disease. Vince Rios Jr., MD Objective Remarks GENERAL: This is a well-nourished, well-developed patient, in no apparent distress. CARDIOVASCULAR: Normal rate and regular rhythm without murmurs, gallops, or rubs. RESPIRATORY: Good respiratory efforts. Breath sounds equal and clear to auscultation bilaterally. GASTROINTESTINAL: Abdomen soft, non-tender, non-distended. Normal active bowel sounds MUSCULOSKELETAL: Extremities without cyanosis, or edema. NEURO: Alert & Oriented x4 to person, place, time, situation. Moves all ext x4 PSYCH: Appropriate mood and affect. A/P Problem List: (1) Pleuritic chest pain ICD Code: R07.81 Status: Acute (2) History of pulmonary embolism ICD Code: Z86.711 Status: Acute (3) Hypertension ICD Code: I10 Status: Acute (4) Hyperlipidemia ICD Code: E78.5 Status: Acute Assessment and Plan 71-year-old female who presented to the hospital with pleuritic chest pain. The patient has a history of pulmonary embolism and is on Coumadin. Her INR was found to be supratherapeutic. Serial cardiac enzymes and EKG were unremarkable. Upon further workup. Repeat CTA showed resolution of the pulmonary embolism. There was an area of infarct that is likely related to the previous embolism. The patient pain was also localized to that same area. She was evaluated by pulmonology who recommended observation and to adjust Coumadin to the target INR. The patient reports she's had a change in Coumadin from 2.5 mg to 6 mg about a week ago when her INR was found to be 1.8. Prior to that she reports she was stable on 2.5 mg for a while. Coumadin was held on admission. She was discharged on a lower dose of Coumadin 3 mg daily. Repeat INR in 2-3 days. She is advised to follow-up with her primary care physician for further titration of Coumadin. Hypertension, Continue home medications Discharge Planning Discharge home in good condition Follow up with: PCP Activity: Regular as tolerated Diet: Heart healthy, Coumadin diet Meds: Per med rec. Problem Qualifiers (1) Hypertension: Qualified Code: I15.9 - Secondary hypertension (2) Hyperlipidemia: Qualified Code: E78.5 - Hyperlipidemia, unspecified hyperlipidemia type Jeremiah Mayer MD Dec 29, 2016 09:43
== END 2016-12-29 10:50 | disposition home or self-care (01) ==
LOC: PHED 08:13 → PHEDA 10:30 → PH3A 12:48
PROVIDERS: ADMIT Family Medicine; ATTEND Family Medicine
DX: R07.81 Pleurodynia (principal); E78.5 Hyperlipidemia, unspecified; I12.9 Hypertensive chronic kidney disease with stage 1 through stage 4 chronic kidney disease, or unspecified chronic kidney disease; N18.9 Chronic kidney disease, unspecified; M81.0 Age-related osteoporosis without current pathological fracture; J45.909 Unspecified asthma, uncomplicated; K21.9 Gastro-esophageal reflux disease without esophagitis; E78.00 Pure hypercholesterolemia, unspecified; Z86.711 Personal history of pulmonary embolism; Z79.52 Long term (current) use of systemic steroids; Z79.01 Long term (current) use of anticoagulants
CPT/HCPCS: 71010; 71275; 80048; 80053; 82550; 82552; 83690; 83735; 83880; 84484; 85025; 85610; 85730; 93005; 96360; 99285; G0378; J7040; Q9967

== ENCOUNTER 2017-10-23 15:02 | Emergency (ER) | payer MEDICARE, BC ==
[~2017-10-23] VITALS: Ht 154.9 cm; Wt 98.1 kg
[~2017-10-23 15:02] MED LIST changes: -APIX5TAB PO; -ENOX100I SQ; -INHALER; -MULT1TAB84 PO; -NYST500000 PO; -OMEP20TA PO; +OMEP20TA93 PO; -SERT25TA83 PO; -WARF-23 PO; +WARF-58 PO
[2017-10-23 15:06] VITALS: BP 188/87; PULSE 79; RESP 18; TEMP 99.5; O2SAT 94
[2017-10-23 15:18] LABS: BILIRUBIN, URINE NEG (NEG); BLOOD, URINE NEG (NEG); GLUCOSE,URINE NEG (NEG); KETONE, URINE NEG (NEG); NITRITE,URINE NEG (NEG); PH, URINE 7.5 (5.0-8.5); URINE COLOR YELLOW (YELLW/STRAW); URINE LEUKOCYTE ESTERASE NEG (NEG)
[2017-10-23 15:24] LABS: BACTERIA, URINE RARE /hpf; SQUAMOUS EPITHELIAL CELL URINE 0-5 /hpf (0-5); TRANSITIONAL EPI CELLS, URINE 0-5 /hpf; WBC, URINE 0-2 /hpf (0-5)
[2017-10-23] MEDS ORDERED: TRAM50 PO (16:29)
--- NOTE | 2017-10-23 16:29 | PD ---
HPI Chief Complaint: Back/ Neck Pain or Injury Time Seen by Provider: 16:14 Travel History International Travel<30 days: No Contact w/Intl Traveler<30days: No Traveled to known affect area: No History of Present Illness HPI This is a 72-year-old female here with right upper back pain 3 days. Pain is worse with movement and palpation over the scapula. Slightly improved with Aleve and rest. Pain is described as spasming. Localized to the back and nonradiating. Symptom severity is moderate. Aggravated by movement and relieved with rest. 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) High Cholesterol: Yes Chemotherapy: No Chest Pain: No Congestive Heart Failure: No COPD: No Cerebrovascular Accident: No Diabetes: No Diminished Hearing: No Endocrine: No Gastrointestinal Disorders: Yes GERD: Yes Glaucoma: No Genitourinary: Yes Headaches: No Hepatitis: No Hiatal Hernia: Yes Heparin Induced Thrombocytopen: No Hypertension: Yes Immune Disorder: Yes (PMR polymyalgia rheumatica) Implanted Vascular Access Dvce: No Kidney Stones: No Musculoskeletal: No Neurologic: No Psychiatric: Yes Reproductive: No Respiratory: Yes Migraines: No Myocardial Infarction: No Radiation Therapy: No Renal Failure: Yes (ACUTE RENAL INCIDENT FROM SURGERY LOW BLOOD PRESSURE ISSUE) Seizures: No Sickle Cell Disease: No Thyroid Disease: No Ulcer: No Tetanus Vaccination: Unknown ?: Not Past Surgical History Abdominal Surgery: Yes (APPENDECTOMY, CHOLESCYSTECTOMY, HERNIA REPAIR X 5, ) AICD: No Appendectomy: Yes Arteriovenous Shunt: No Cardiac Surgery: No Cholecystectomy: Yes Ear Surgery: No Endocrine Surgery: No Eye Surgery: Yes (CATARACTS ) Genitourinary Surgery: No Gynecologic Surgery: Yes (HYSTERECTOMY ) Hysterectomy: Yes Insulin Pump: No Joint Replacement: No Neurologic Surgery: No Oral Surgery: Yes (TONSILECTOMY, WISODM TEETH ) Pacemaker: No Thoracic Surgery: No Other Surgery: Yes (HERNIA REPAIR) Social History Alcohol Use: No Tobacco Use: No Substance Use: No Allergies-Medications (Allergen,Severity, Reaction): Coded Allergies: No Known Allergies (Verified Adverse Reaction, Unknown, 10/23/17) Reported Meds & Prescriptions Reported Meds & Active Scripts Active Ultram (Tramadol HCl) 50 Mg Tab 50 Mg PO Q6H PRN Reported Stool Softener (Docusate Sodium) 100 Mg Tab 1 Tab PO BID Fish Oil + D3 (Fish Oil-Cholecalciferol) 1,200-1,000 Mg-Unit Cap 1 Cap PO DAILY Omeprazole 20 Mg Tab 20 Mg PO DAILY Furosemide 20 Mg Tab 20 Mg PO DAILY Potassium Chloride ER (Potassium Chloride) 10 Meq Tab 10 Meq PO DAILY Atenolol 25 Mg Tab 25 Mg PO DAILY Calcium 500 +D (Calcium Carbonate-Cholecalciferol) 500-400 Mg-Unit Tab 1 Tab PO BID Review of Systems Except as stated in HPI: all other systems reviewed are Neg General / Constitutional: No: Fever Eyes: No: Visual changes HENT: No: Headaches Cardiovascular: No: Chest Pain or Discomfort Respiratory: No: Shortness of Breath Gastrointestinal: No: Abdominal Pain Genitourinary: No: Dysuria Physical Exam Narrative GENERAL: Alert and well-appearing 72-year-old female. Resting comfortably on stretcher. No distress. SKIN: Warm and dry. HEAD: Normocephalic. EYES: No injection or drainage. NECK: Supple. Thank no JVD CARDIOVASCULAR: Regular rate and rhythm without murmurs, gallops, or rubs. RESPIRATORY: Breath sounds equal bilaterally. No accessory muscle use. GASTROINTESTINAL: Abdomen soft, non-tender, nondistended. MUSCULOSKELETAL: No cyanosis, or edema. BACK: + Tenderness to the soft tissue/musculature to the right thoracic region near the scapula. Pain is reproducible to palpation. Without obvious deformity. No midline spine tenderness. No CVA tenderness. Data Data Last Documented VS Orders Orders Urinalysis - C+S If Indicated (10/23/17 15:05) Ketorolac Inj (Toradol Inj) (10/23/17 16:30) Labs Laboratory Tests Test 10/23/17 15:12 Urine Collection Type CLEAN CATCH Urine Color YELLOW Urine Turbidity CLEAR Urine pH 7.5 Urine Specific [place] 1.015 Urine Protein NEG mg/dL Urine Glucose (UA) NEG mg/dL Urine Ketones NEG mg/dL Urine Occult Blood NEG Urine Nitrite NEG Urine Bilirubin NEG Urine Urobilinogen 0.2 MG/DL Urine Leukocyte Esterase NEG Urine WBC 0-2 /hpf Urine Squamous Epithelial Cells 0-5 /hpf Urine Transitional Epithelial Cells 0-5 /hpf Urine Bacteria RARE /hpf Microscopic Urinalysis Comment CULT NOT INDICATED MDM Medical Decision Making Medical Screen Exam Complete: Yes Emergency Medical Condition: Yes Differential Diagnosis Upper back strain, rotator cuff injury, ACS unlikely Narrative Course This is a 72-year-old female here with right upper back pain 3 days. Pain is worse with movement and palpation over the scapula. Slightly improved with Aleve and rest. Patient is well-appearing. The pain is reproducible to palpation of the soft tissue/musculature near the right scapula and range of motion of the shoulder. She was given a shot of Toradol and observe. She reports symptom improvement. She denies any chest pain, palpitations, shortness of breath. Patient has been seen several times in the ED for chest pain and pulmonary embolism. She reports this pain is not similar to the pain from the PE. She believes this is musculoskeletal Diagnosis Primary Impression: Upper back pain Referrals: Primary Care Physician Additional Instructions: Ibuprofen 800 mg every 6 hours for pain. Ultram as needed for severe pain. Follow-up with her primary doctor. Return if any worsening symptoms Scripts Tramadol (Ultram) 50 Mg Tab 50 MG PO Q6H Y for PAIN, #12 TAB 0 Refills Prov: Elizabeth Dumont 10/23/17 Disposition: 01 DISCHARGE HOME Condition: Stable Elizabeth Dumont Oct 23, 2017 16:29
[2017-10-23] MEDS ORDERED: KETOROLAC TROMETHAMINE 60 MG/2 ML (IM) VIAL IM ONE (16:30)
== END 2017-10-23 16:56 | disposition home or self-care (01) ==
LOC: PHEFT 15:02
DX: M54.6 Pain in thoracic spine (principal); F41.9 Anxiety disorder, unspecified; F32.9 Major depressive disorder, single episode, unspecified; E78.00 Pure hypercholesterolemia, unspecified; K21.9 Gastro-esophageal reflux disease without esophagitis; K44.9 Diaphragmatic hernia without obstruction or gangrene; I10 Essential (primary) hypertension; M35.3 Polymyalgia rheumatica; Z86.711 Personal history of pulmonary embolism
CPT/HCPCS: 81001; 96372; 99283; J1885